=== PATIENT | male | born 1935 | race Caucasian/White ===

== ENCOUNTER 2016-04-10 00:20 | Inpatient (IN) | payer MEDICARE ==
[~2016-04-10] VITALS: Ht 182.9 cm; Wt 101.2 kg
[2016-04-10 00:55] LABS: BASO % 0 % (0-3); EOS % 0 % (0-3); HEMATOCRIT 40.7 % (39.0-53.0); HEMOGLOBIN 13.3 g/dL (13.0-17.5); LYMPH % 18 % (24-48); MEAN CORPUSCULAR HEMOGLOBIN 31 pg (25-35); MEAN CORPUSCULAR HGB CONC 33 g/dL (31-37); MEAN CORPUSCULAR VOLUME 94 fL (79-100); MONO % 10 % (0-9); NEUT % 72 % (31-73); PLATELET COUNT 141 x10^3/uL (140-400); RED BLOOD COUNT 4.33 x10^6/uL (4.30-5.70); RED CELL DISTRIBUTION WIDTH 15.2 % (11.5-14.5); WHITE BLOOD COUNT 5.6 x10^3/uL (4.0-11.0)
[2016-04-10 01:13] LABS: OBC FLU VALID
[2016-04-10] MEDS: IV NORMAL SALINE 1000ML BAG 1,000 ML IV SCH ×5 (01:15→19:00)
[2016-04-10 01:20] LABS: CALCIUM 8.6 mg/dL (8.5-10.1); CREATININE 1.7 mg/dL (0.7-1.3); GFR 39.2; POTASSIUM 4.2 mmol/L (3.5-5.1)
[2016-04-10 01:26] LABS: ALBUMIN 3.2 g/dL (3.4-5.0); TOTAL BILIRUBIN 0.3 mg/dL (0.2-1.0); TOTAL PROTEIN 6.5 g/dL (6.4-8.2)
[2016-04-10] MEDS ORDERED: ACETAMINOPHEN 500 MG TABLET PO ONE (01:30)
[2016-04-10] MEDS ORDERED: OSELTAMIVIR 75 MG CAPSULE PO ONE (01:45)
[2016-04-10] MEDS ORDERED: ONDANSETRON PF 4 MG/2 ML VIAL. IV PRN ×2 (02:45→12:00)
[2016-04-10 03:30] VITALS: BP 117/56
[2016-04-10] MEDS ORDERED: DIVA250T6 PO (03:53)
[2016-04-10] MEDS ORDERED: MELA5CAP PO (03:53)
[2016-04-10] MEDS ORDERED: METF500T4 PO (03:53)
[2016-04-10] MEDS ORDERED: HYDR30CR RC (03:53)
[2016-04-10] MEDS ORDERED: ACET325T9 PO (03:53)
[2016-04-10] MEDS ORDERED: LOSA50TA6 PO (03:53)
[2016-04-10] MEDS ORDERED: BUSP15TA PO (03:53)
[2016-04-10] MEDS ORDERED: FLUT16SP NAS (03:53)
[2016-04-10] MEDS ORDERED: GLIM2TAB2 PO (03:53)
[2016-04-10] MEDS ORDERED: IPRA3AMP NEB (03:53)
[2016-04-10] MEDS ORDERED: ESZO2TAB33 PO (03:53)
[2016-04-10] MEDS ORDERED: DONE10TA7 PO (03:53)
[2016-04-10] MEDS ORDERED: MAGN400O4 PO (03:53)
[2016-04-10] MEDS ORDERED: TRAZ50TA15 PO (03:53)
[2016-04-10] MEDS ORDERED: ALPR0.254 PO (03:53)
[2016-04-10] MEDS ORDERED: ASPI-482 PO (03:53)
[2016-04-10] MEDS ORDERED: CITA40TA5 PO (03:53)
--- NOTE | 2016-04-10 03:55 | PHYS DOC ---
Past Medical History Past Medical History: Anxiety, Dementia, Depression, Diabetes-Type II, Hypertension Additional Past Medical Histor: insomnia, poor historian Past Surgical History: Appendectomy, Knee Replacement Additional Past Surgical Histo: R knee, cardiac stents Alcohol Use: None Drug Use: None Adult General Chief Complaint Chief Complaint: ALTERED MENTAL STATUS HPI HPI Patient is a 80 year old gentleman who has a history significant for coronary artery disease, hypertension, diabetes, status post cholecystectomy, former smoker and alcoholic, currently with a diagnosis of Alzheimer's per his daughter presents to the ER today secondary to hypoxia, fever to 103, and altered mental status at the nursing facility. According the daughter he's been having a dry nonproductive cough. No nausea vomiting or diarrhea. She reports that they did an x-ray on him at the facility and his chest x-ray was normal. They brought him into the ER today secondary to hypoxia at the facility his oxygen level been running between 85-88% on room air which is unusual for him. Patient's physical exam is unremarkable. Patient's lungs were clear with no wheezing rales or rhonchi. On 3 L of O2 and his pulse ox is 98%. Patient appears comfortable. Patient has no rashes. Patient has no signs or symptoms of be consistent with meningitis. Patient's lab workup in the ER was significant for positive influenza. Patient' s chest x-ray was clear with no infiltrates or effusions. The remainder the patient's labs were all within normal limits. Given that the patient is hypoxic in the ER with a pulse ox of 85% on room air every time he take his O2 off he does desaturate and his influenza titer being positive we will go ahead and admit him for supplemental O2 and further evaluation of his pulmonary status. Patient is otherwise clinically and hemodynamically stable to be transferred to the floor. Review of Systems Review of Systems Constitutional: Denies fever or chills [] Eyes: Denies change in visual acuity, redness, or eye pain [] All other review systems are negative except as documented in the history of present illness portion. Current Medications Current Medications Current Medications Medications (Trade) Dose Ordered Sig/Laine Start Time Stop Time Status Last Admin Dose Admin Sodium Chloride (Iv Sodium Chloride 0.9% 1000ml Bag) 1,000 ml @ 750 mls/hr Q1H20M 04/10/16 01:00 04/10/16 04:59 04/10/16 01:15 750 MLS/HR Allergies Allergies Allergies Coded Allergies Type Severity Reaction Last Updated Verified No Known Drug Allergies 04/10/16 No Physical Exam Physical Exam Constitutional: Well developed, well nourished, no acute distress, non-toxic appearance. [] HENT: Normocephalic, atraumatic, bilateral external ears normal, oropharynx moist, no oral exudates, nose normal. [] Eyes: PERRLA, EOMI, conjunctiva normal, no discharge. [] Neck: Normal range of motion, no tenderness, supple, no stridor. [] Cardiovascular:Heart rate regular rhythm, no murmur [] Lungs & Thorax: Bilateral breath sounds clear to auscultation [] Abdomen: Bowel sounds normal, soft, no tenderness, no masses, no pulsatile masses. [] Skin: Warm, dry, no erythema, no rash. [] Back: No tenderness, no CVA tenderness. [] Extremities: No tenderness, no cyanosis, no clubbing, ROM intact, no edema. [] Neurologic: Alert and oriented X Current Patient Data Vital Signs Vital Signs Date Time Temp Pulse Resp B/P Pulse Ox O2 Delivery O2 Flow Rate FiO2 04/10/16 01:05 78 20 103/59 96 Nasal Cannula 3 04/10/16 00:20 101.8 101.8 Lab Values Laboratory Tests Test 04/10/16 00:30 04/10/16 00:33 White Blood Count 5.6x10^3/uL (4.0-11.0) Red Blood Count 4.33x10^6/uL (4.30-5.70) Hemoglobin 13.3g/dL (13.0-17.5) Hematocrit 40.7% (39.0-53.0) Mean Corpuscular Volume 94fL (79-100) Mean Corpuscular Hemoglobin 31pg (25-35) Mean Corpuscular Hemoglobin Concent 33g/dL (31-37) Red Cell Distribution Width 15.2% (11.5-14.5) H Platelet Count 141x10^3/uL (140-400) Neutrophils (%) (Auto) 72% (31-73) Lymphocytes (%) (Auto) 18% (24-48) L Monocytes (%) (Auto) 10% (0-9) H Eosinophils (%) (Auto) 0% (0-3) Basophils (%) (Auto) 0% (0-3) Neutrophils # (Auto) 4.0x10^3uL (1.8-7.7) Lymphocytes # (Auto) 1.0x10^3/uL (1.0-4.8) Monocytes # (Auto) 0.6x10^3/uL (0.0-1.1) Eosinophils # (Auto) 0.0x10^3/uL (0.0-0.7) Basophils # (Auto) 0.0x10^3/uL (0.0-0.2) Sodium Level 142mmol/L (136-145) Potassium Level 4.2mmol/L (3.5-5.1) Chloride Level 104mmol/L (98-107) Carbon Dioxide Level 27mmol/L (21-32) Anion Gap 11 (6-14) Blood Urea Nitrogen 26mg/dL (8-26) Creatinine 1.7mg/dL (0.7-1.3) H Estimated GFR (Cockcroft-Gault) 39.2 BUN/Creatinine Ratio 15 (6-20) Glucose Level 217mg/dL (70-99) H Calcium Level 8.6mg/dL (8.5-10.1) Total Bilirubin 0.3mg/dL (0.2-1.0) Aspartate Amino Transferase (AST) 30U/L (15-37) Alanine Aminotransferase (ALT) 20U/L (16-63) Alkaline Phosphatase 64U/L (46-116) Total Protein 6.5g/dL (6.4-8.2) Albumin 3.2g/dL (3.4-5.0) L Albumin/Globulin Ratio 1.0 (1.0-1.7) Influenza Type A Antigen Negative (NEGATIVE) Influenza Type B Antigen Positive (NEGATIVE) Laboratory Tests 04/10/16 00:30 Laboratory Tests 04/10/16 00:30 EKG EKG [] Radiology/Procedures Radiology/Procedures [] Course & Med Decision Making Course & Med Decision Making Pertinent Labs and Imaging studies reviewed. (See chart for details) [] Dragon Disclaimer Dragon Disclaimer This electronic medical record was generated, in whole or in part, using a voice recognition dictation system. Departure Departure Impression: Primary Impression: Altered mental status Additional Impressions: Febrile illness Influenza Hypoxia Disposition: ADMITTED INPATIENT Admitting Physician: Fernando Goncalves Condition: LEFT WITHOUT BEING SEEN Referrals: FELIX LECHUGA MD (PCP) Problem Qualifiers JARRELL SAMUEL MD Apr 10, 2016 03:55
--- NOTE | 2016-04-10 04:33 | ACF ---
Admit Criteria Forms Admit Criteria Forms Admit Criteria Forms MENTAL STATUS CHANGE Clinical Indications for Inpatient Care (Place 'X' for any and all applicable criteria): Ongoing inpatient care may be needed for ANY ONE of the following(1)(2)(3)(5)(6) : [X]I. Suspected serious etiology (eg, medical disorder, OPTICAL DESIGN ENGINEER event) of mental status change [ ]II. Danger to self or others not manageable at lower level of care [ ]III. Grave disability (eg, inability to perform self care necessary at lower level of care) [ ]IV. Agitation or inappropriate behavior interfering with care for primary condition (eg, attempting to discontinue lines or drains prematurely, unable to cooperate with respiratory care) [ ]V. Delirium [A] [D][E] as described by ANY ONE of the following(26): [ ]a) Delirium due to alcohol or sedative [F] withdrawal [ ]b) Delirium of uncertain etiology that has not responded to appropriate empiric treatment [ ]c) Delirium that prevents performance of a life-sustaining function (eg, feeding or hydrating oneself) [X]. General contraindications and/or Inappropriate clinical situations for Observational Care in patients with Mental Status Change, when ANY ONE of the following is required: [X]a) Prediction of prolongation of LOS based on ANY ONE of the following may be considered as a contraindication for observational care 2, 3, 4, 5, 6, 7, 8, 9, 10, 11 [X]i) Age > 65 yrs. [ ]ii) Patient arriving by ambulance [ ]iii) Patient with high acuity [ ]iv) Patient requiring vital sign monitoring [ ]v) Patient on IV medication [ ]b) Systolic blood pressures 180mmHg 3,12 [ ]c) Patient with altered mental status including delirium and other alteration of consciousness, (3) [ ]d) Patient whose discharge disposition will be to a detention home or rehabilitation home should not be managed in Emergency Department Observation Unit. CMS rule requires 3 days hospital stay before such placement.3,13 [ ]e) Patient with failure to thrive due to broad array of etiologies 3,16,17 [ ]f) Inability to ambulate 3,14 Extended stay beyond goal length of stay for the primary condition may be needed until ALL of the following are present(3)(5): [ ]a) Underlying medical etiology of mental status change is absent, or has been established and adequately treated [ ]b) Danger to self or others is absent or manageable at lower level of care. [ ]c) Behavior crisis management, including physical or chemical restraints, is not required or available at lower level of car [ ]d) Substance or alcohol withdrawal is absent or manageable at lower level of care. [ ]e) Behavioral symptoms (eg, agitation, somnolence, inappropriate behavior) are absent, or are manageable at lower level of care. The original [facility] content created by [employer] has been revised. The portions of the content which have been revised are identified through the use of italic text or in bold, and [facility] [employer] has neither reviewed nor approved the modified material. All other unmodified content is copyright [employer]. Please see references footnoted in the original [facility] edition 2016 MENTAL STATUS CHANGE Clinical Indications for Inpatient Care (Place 'X' for any and all applicable criteria): Ongoing inpatient care may be needed for ANY ONE of the following(1)(2)(3)(5)(6) : [ ]I. Suspected serious etiology (eg, medical disorder, OPTICAL DESIGN ENGINEER event) of mental status change [ ]II. Danger to self or others not manageable at lower level of care [ ]III. Grave disability (eg, inability to perform self care necessary at lower level of care) [ ]IV. Agitation or inappropriate behavior interfering with care for primary condition (eg, attempting to discontinue lines or drains prematurely, unable to cooperate with respiratory care) [ ]V. Delirium [A] [D][E] as described by ANY ONE of the following(26): [ ]a) Delirium due to alcohol or sedative [F] withdrawal [ ]b) Delirium of uncertain etiology that has not responded to appropriate empiric treatment [ ]c) Delirium that prevents performance of a life-sustaining function (eg, feeding or hydrating oneself) [X]. General contraindications and/or Inappropriate clinical situations for Observational Care in patients with Mental Status Change, when ANY ONE of the following is required: [X]a) Prediction of prolongation of LOS based on ANY ONE of the following may be considered as a contraindication for observational care 2, 3, 4, 5, 6, 7, 8, 9, 10, 11 [X]i) Age > 65 yrs. [ ]ii) Patient arriving by ambulance [ ]iii) Patient with high acuity [ ]iv) Patient requiring vital sign monitoring [ ]v) Patient on IV medication [ ]b) Systolic blood pressures 180mmHg 3,12 [ ]c) Patient with altered mental status including delirium and other alteration of consciousness, (3) [ ]d) Patient whose discharge disposition will be to a detention home or rehabilitation home should not be managed in Emergency Department Observation Unit. CMS rule requires 3 days hospital stay before such placement.3,13 [ ]e) Patient with failure to thrive due to broad array of etiologies 3,16,17 [ ]f) Inability to ambulate 3,14 Extended stay beyond goal length of stay for the primary condition may be needed until ALL of the following are present(3)(5): [ ]a) Underlying medical etiology of mental status change is absent, or has been established and adequately treated [ ]b) Danger to self or others is absent or manageable at lower level of care. [ ]c) Behavior crisis management, including physical or chemical restraints, is not required or available at lower level of car [ ]d) Substance or alcohol withdrawal is absent or manageable at lower level of care. [ ]e) Behavioral symptoms (eg, agitation, somnolence, inappropriate behavior) are absent, or are manageable at lower level of care. The original [facility] content created by [facility] [employer] [facility] [employer] has been revised. The portions of the content which have been revised are identified through the use of italic text or in bold, and [facility] has neither reviewed nor approved the modified material. All other unmodified content is copyright [facility] [employer]. Please see references footnoted in the original [facility] [employer] edition 2016 KIARA FELICIANO Apr 10, 2016 04:33
[2016-04-10 07:00] VITALS: BP 144/76
--- NOTE | 2016-04-10 07:28 | RAD ---
EXAM: Chest one view. HISTORY: Fever. COMPARISON: 05/06/2015. FINDINGS: A frontal view of the chest is obtained. There is a mild opacity in the retrocardiac territory. There is no pneumothorax or pleural effusion. The heart is not enlarged. There are atherosclerotic calcifications of the aorta. IMPRESSION: 1. Retrocardiac atelectasis or infiltrate.
[2016-04-10] MEDS: IPRATRPIUM/ALBUTEROL 0.5/2.5MG 3 ML NEBU. NEB SCH ×4 (08:36→20:01)
[2016-04-10] MEDS: ACETAMINOPHEN 325 MG TABLET. PO PRN ×2 (09:36→21:13)
[2016-04-10 11:22] VITALS: BP 111/57
[2016-04-10] MEDS ORDERED: ALPRAZOLAM 0.25 MG TABLET PO PRN (12:00)
[2016-04-10] MEDS ORDERED: IV 1/2 NORMAL SALINE 1,000 ML IV ONE (12:00)
[2016-04-10] MEDS ORDERED: traZODone 50 MG TABLET. PO PRN (12:00)
[2016-04-10] MEDS ORDERED: DIVALPROEX DELAYED RELEASE 250 MG TABLET.DR. PO PRN (12:00)
[2016-04-10] MEDS ORDERED: ALBUTEROL SULFATE 2.5 MG/3 ML NEBU. NEB PRN (12:00)
[2016-04-10] MEDS ORDERED: DEXTROSE 50% 25 GM / 50ML DISP.SYRIN. IV PRN (12:00)
[2016-04-10] MEDS ORDERED: NON FORMULARY ITEM (Melatonin 5 MG) PO PRN (12:00)
[2016-04-10] MEDS ORDERED: busPIRone 5 MG TABLET. PO PRN (12:00)
[2016-04-10] MEDS ORDERED: HYDROCORTISONE 2.5% RECTAL CREAM 30GM TUBE. RC PRN (12:00)
--- NOTE | 2016-04-10 12:29 | PDOC ---
Provider Note Provider Note dictated CHARISSA MCDONNELL MD Apr 10, 2016 12:29
[2016-04-10] MEDS: INSULIN ASPART 300 UNITS/3 ML INSULN.PEN SQ SCH ×3 (12:30→21:00)
--- NOTE | 2016-04-10 12:57 | CONS ---
DATE OF CONSULTATION: ATTENDING PHYSICIAN: Dr. Goncalves. REASON FOR CONSULTATION: Influenza. HISTORY OF PRESENT ILLNESS: The patient is a 80-year-old male with history of coronary artery disease, hypertension and diabetes. He is a former smoker and alcoholic. He was brought into the Emergency Room with fever of 103 and altered mental status at the nursing facility. The patient has been having a dry nonproductive cough. He is not the best historian. I will obtain much of the history from the ER note and also from H and P. He is not in any obvious respiratory distress. He is currently requiring oxygen at 3 liters with a saturation of 91%. His chest x-ray was reviewed by me and it showed questionable atelectasis or infiltrate in the left lower lobe. I also reviewed his CT from 06/08/2015. At that time, there was some few parenchymal abnormalities on the left side, one of them was 0.5 cm nodular density in the left upper lobe and ____ density in the left lower lobe. It has not been followed up. Consultation requested for further evaluation and management. His serology for influenza B is positive. PAST MEDICAL HISTORY: Significant for anxiety, dementia, depression, type 2 diabetes, hypertension, insomnia, poor historian, Alzheimer's disease. PAST SURGICAL HISTORY: Appendectomy and knee replacement and cardiac stents. ALLERGIES: None. CURRENT MEDICATIONS: Currently were reviewed as listed in the MRAD including Tamiflu. REVIEW OF SYSTEMS: Limited, but pertinent positives discussed in history of present illness. SOCIAL HISTORY: Lives in [facility]. The patient denies any significant tobacco history. PHYSICAL EXAMINATION: VITAL SIGNS: Blood pressure is stable, T-max of 101.7, pulse ox 91% on 3 liters. NECK: Supple. LUNGS: Clear. CARDIOVASCULAR: Regular rate. ABDOMEN: Soft, nontender. EXTREMITIES: With bilateral pitting edema. LABORATORY DATA: Reviewed and influenza B is positive. BUN 26, creatinine 1.7. White cell count 5.6, hemoglobin 13.3, platelets of 141. IMPRESSION: 1. Febrile illness secondary to influenza B. 2. Previous abnormal CT chest in 06/2015. Would need a followup CT chest. 3. Encephalopathy secondary to febrile illness, clinically improving. 4. Renal insufficiency. RECOMMENDATIONS: 1. Continue with Tamiflu. 2. Influenza isolation. 3. Continue with oxygen and slowly wean to keep saturation [address] above[address] 4. Noncontrast CT chest. 5. IV hydration and monitor renal function. 6. Discussed with RN. CHARISSA MCDONNELL MD DR: EMANI/yamil JOB#: [id number] / [id number]
[2016-04-10] MEDS: LOSARTAN POTASSIUM 50 MG TABLET. PO SCH (13:46)
[2016-04-10] MEDS: ASPIRIN ENTERIC COATED 81 MG TABLET.DR. PO SCH (13:46)
--- NOTE | 2016-04-10 14:39 | PDOC1 ---
History and Physical Date of Admission Date of Admission 04/10/16 Identification/Chief Complaint Chief Complaint fever Problems: Source Source: Chart review History of Present Illness History of Present Illness 80 yo M , severe dementia, from SNF, for fever 103. Pt was found + flu, on tamiflu now. pt is very demented, only aaox1 to his name, answer questions tho, but only says "NO". he admited has some cough, denies sob. He was found desat in ER. Past Medical History Past Medical History ry: Anxiety, Dementia, Depression, Diabetes-Type II, Hypertension Additional Past Medical Histor: insomnia, poor historian Cardiovascular: HTN Past Surgical History Past Surgical History : Appendectomy, Knee Replacement Additional Past Surgical Histo: R knee, cardiac stents Family History Family History: No Significant Social History Smoke: No ALCOHOL: none Drugs: None Current Problem List Problem List Problems Medical Problems: (1) Altered mental status Status: Acute (2) Febrile illness Status: Acute (3) Hypoxia Status: Acute (4) Influenza Status: Acute Current Medications Current Medications Current Medications Medications (Trade) Dose Ordered Sig/Laine Start Time Stop Time Status Last Admin Dose Admin Acetaminophen (Tylenol) 650 mg PRN Q6HRS PRN 04/10/16 12:00 Albuterol Sulfate (Ventolin Neb Soln) 2.5 mg PRN QID PRN 04/10/16 12:00 Albuterol/ Ipratropium (Duoneb) 3 ml RTQID 04/10/16 08:00 04/11/16 07:59 04/10/16 11:24 3 ML Alprazolam (Xanax) 0.25 mg PRN BID PRN 04/10/16 12:00 Aspirin (Ecotrin) 81 mg DAILY 04/10/16 12:15 04/10/16 13:46 81 MG Buspirone HCl (Buspar) 15 mg PRN BID PRN 04/10/16 12:00 Citalopram Hydrobromide (Celexa) 40 mg DAILY 04/11/16 09:00 Dextrose 12.5 gm PRN Q15MIN PRN 04/10/16 12:00 Divalproex Sodium (Depakote) 250 mg PRN DAILY PRN 04/10/16 12:00 Donepezil HCl (Aricept) 10 mg HS 04/10/16 21:00 Fluticasone Propionate (Flonase) 1 spray BID 04/10/16 12:30 Glimepiride (Amaryl) 2 mg BIDAC 04/10/16 16:30 Hydrocortisone (Proctosol-Hc) 1 chase PRN TID PRN 04/10/16 12:00 Insulin Aspart (Novolog) 0-9 UNITS QIDACHS 04/10/16 12:30 Losartan Potassium (Cozaar) 50 mg DAILY 04/10/16 12:30 04/10/16 13:46 50 MG Magnesium Hydroxide (Milk Of Magnesia) 400 mg BIDAC 04/10/16 16:30 Non-Formulary Medication 5 mg HS PRN 04/10/16 12:00 04/10/16 12:00 DC Ondansetron HCl 4 mg 4 mg PRN Q6HRS PRN 04/10/16 12:00 Oseltamivir Phosphate (Tamiflu) 30 mg BID 04/10/16 21:00 04/15/16 20:59 Oseltamivir Phosphate 75 mg 75 mg 1X ONCE 04/10/16 01:45 04/10/16 01:46 DC 04/10/16 01:49 75 MG Sodium Chloride (Iv Sodium Chloride 0.45%) 1,000 ml @ 75 mls/hr 1X ONCE 04/10/16 12:00 04/11/16 01:19 Sodium Chloride (Iv Sodium Chloride 0.9% 1000ml Bag) 1,000 ml @ 125 mls/hr Q8H 04/10/16 03:00 04/11/16 02:59 04/10/16 05:27 125 MLS/HR Trazodone HCl (Desyrel) 25 mg PRN QHS PRN 04/10/16 12:00 Zolpidem Tartrate (Ambien) 5 mg PRN QHS PRN 04/10/16 12:00 Allergies Allergies Allergies Coded Allergies Type Severity Reaction Last Updated Verified No Known Drug Allergies 04/10/16 No ROS Review of System CONSTITUTIONAL: No fever or chills EYES: No recent changes SKIN: No rash or itching CARDIOVASCULAR: No chest pain, syncope, palpitations, or edema RESPIRATORY: No SOB or cough GASTROINTESTINAL: No nausea, vomiting or abdominal pain NEUROLOGICAL: No headaches or weakness ENDOCRINE: No cold or heat intolerance GENITOURINARY: No urgency or frequency of urination MUSCULOSKELETAL: No back pain or joint pain LYMPHATICS: No enlarged lymph nodes PSYCHIATRIC: No anxiety or depression Physical Exam Physical Exam GEN.: No apparent distress. Alert and orientedx1 , to person only, pleasant. follow commands. HEENT: Head is normocephalic, atraumatic NECK: Supple. LUNGS: bl coarse BS HEART: RRR, S1, S2 present. Peripheral pulses intact ABDOMEN: Soft, nontender. Positive bowel sounds. EXTREMITIES: Without any cyanosis. NEUROLOGIC: Normal speech, normal tone PSYCHIATRIC: Normal affect, normal mood. SKIN: No ulcerations Vitals Vitals Vital Signs Date Time Temp Pulse Resp B/P Pulse Ox O2 Delivery O2 Flow Rate FiO2 04/10/16 13:46 65 111/57 04/10/16 11:27 91 Nasal Cannula 3.0 04/10/16 11:22 98.4 22 98.4 Labs Labs Laboratory Tests Test 04/10/16 00:30 04/10/16 00:33 04/10/16 07:42 White Blood Count 5.6x10^3/uL (4.0-11.0) Red Blood Count 4.33x10^6/uL (4.30-5.70) Hemoglobin 13.3g/dL (13.0-17.5) Hematocrit 40.7% (39.0-53.0) Mean Corpuscular Volume 94fL (79-100) Mean Corpuscular Hemoglobin 31pg (25-35) Mean Corpuscular Hemoglobin Concent 33g/dL (31-37) Red Cell Distribution Width 15.2% (11.5-14.5) Platelet Count 141x10^3/uL (140-400) Neutrophils (%) (Auto) 72% (31-73) Lymphocytes (%) (Auto) 18% (24-48) Monocytes (%) (Auto) 10% (0-9) Eosinophils (%) (Auto) 0% (0-3) Basophils (%) (Auto) 0% (0-3) Neutrophils # (Auto) 4.0x10^3uL (1.8-7.7) Lymphocytes # (Auto) 1.0x10^3/uL (1.0-4.8) Monocytes # (Auto) 0.6x10^3/uL (0.0-1.1) Eosinophils # (Auto) 0.0x10^3/uL (0.0-0.7) Basophils # (Auto) 0.0x10^3/uL (0.0-0.2) Sodium Level 142mmol/L (136-145) Potassium Level 4.2mmol/L (3.5-5.1) Chloride Level 104mmol/L (98-107) Carbon Dioxide Level 27mmol/L (21-32) Anion Gap 11 (6-14) Blood Urea Nitrogen 26mg/dL (8-26) Creatinine 1.7mg/dL (0.7-1.3) Estimated GFR (Cockcroft-Gault) 39.2 BUN/Creatinine Ratio 15 (6-20) Glucose Level 217mg/dL (70-99) Calcium Level 8.6mg/dL (8.5-10.1) Total Bilirubin 0.3mg/dL (0.2-1.0) Aspartate Amino Transf (AST/SGOT) 30U/L (15-37) Alanine Aminotransferase (ALT/SGPT) 20U/L (16-63) Alkaline Phosphatase 64U/L (46-116) Total Protein 6.5g/dL (6.4-8.2) Albumin 3.2g/dL (3.4-5.0) Albumin/Globulin Ratio 1.0 (1.0-1.7) Influenza Type A Antigen Negative (NEGATIVE) Influenza Type B Antigen Positive (NEGATIVE) Glucose (Fingerstick) 77mg/dL (70-99) Laboratory Tests Test 04/10/16 00:30 04/10/16 00:33 04/10/16 07:42 White Blood Count 5.6x10^3/uL (4.0-11.0) Red Blood Count 4.33x10^6/uL (4.30-5.70) Hemoglobin 13.3g/dL (13.0-17.5) Hematocrit 40.7% (39.0-53.0) Mean Corpuscular Volume 94fL (79-100) Mean Corpuscular Hemoglobin 31pg (25-35) Mean Corpuscular Hemoglobin Concent 33g/dL (31-37) Red Cell Distribution Width 15.2% (11.5-14.5) Platelet Count 141x10^3/uL (140-400) Neutrophils (%) (Auto) 72% (31-73) Lymphocytes (%) (Auto) 18% (24-48) Monocytes (%) (Auto) 10% (0-9) Eosinophils (%) (Auto) 0% (0-3) Basophils (%) (Auto) 0% (0-3) Neutrophils # (Auto) 4.0x10^3uL (1.8-7.7) Lymphocytes # (Auto) 1.0x10^3/uL (1.0-4.8) Monocytes # (Auto) 0.6x10^3/uL (0.0-1.1) Eosinophils # (Auto) 0.0x10^3/uL (0.0-0.7) Basophils # (Auto) 0.0x10^3/uL (0.0-0.2) Sodium Level 142mmol/L (136-145) Potassium Level 4.2mmol/L (3.5-5.1) Chloride Level 104mmol/L (98-107) Carbon Dioxide Level 27mmol/L (21-32) Anion Gap 11 (6-14) Blood Urea Nitrogen 26mg/dL (8-26) Creatinine 1.7mg/dL (0.7-1.3) Estimated GFR (Cockcroft-Gault) 39.2 BUN/Creatinine Ratio 15 (6-20) Glucose Level 217mg/dL (70-99) Calcium Level 8.6mg/dL (8.5-10.1) Total Bilirubin 0.3mg/dL (0.2-1.0) Aspartate Amino Transf (AST/SGOT) 30U/L (15-37) Alanine Aminotransferase (ALT/SGPT) 20U/L (16-63) Alkaline Phosphatase 64U/L (46-116) Total Protein 6.5g/dL (6.4-8.2) Albumin 3.2g/dL (3.4-5.0) Albumin/Globulin Ratio 1.0 (1.0-1.7) Influenza Type A Antigen Negative (NEGATIVE) Influenza Type B Antigen Positive (NEGATIVE) Glucose (Fingerstick) 77mg/dL (70-99) VTE Prophylaxis Ordered VTE Prophylaxis Devices: Yes VTE Pharmacological Prophylaxi: Yes Assessment/Plan Assessment/Plan 1. acute resp failure with hypoxia 2 flu b 3. severe dementia 4. dm2 5. htn 6. insomnia 7. anxiety, depression 8. ckd3 9. SIRS with flu plan: 1. fu with pulm 2. adjusted dose of tamiflu, 5ds 3. cont home meds ssi ivf for 1 L labs tmr dvt ppx PTOT PAMELA HADDAD MD Apr 10, 2016 14:39
[2016-04-10] MEDS: HEPARIN PF for SUB-Q USE 5,000 UNIT/0.5 ML VIAL. SQ SCH ×2 (15:00→21:23)
[2016-04-10 15:21] VITALS: BP 108/65
--- NOTE | 2016-04-10 16:27 | RAD ---
EXAM: CT of the chest without intravenous contrast. HISTORY: Lung nodule follow-up. TECHNIQUE: Computed tomography of the chest was performed without intravenous contrast. COMPARISON: 06/08/2015. FINDINGS: Images of the upper abdomen reveal calcified granulomas in the liver and spleen. A gallstone is noted. Bone windows reveal no suspicious lesions. There are no pathologically enlarged mediastinal or axillary lymph nodes. Calcified mediastinal lymph nodes are likely secondary to old granulomatous disease. There is no pleural or pericardial effusion. Calcifications in the right greater than left costophrenic angles may be pleural or small calcified granulomas. The heart is not enlarged. There are atherosclerotic calcifications of the coronary arteries. There are also calcifications of the aortic valve. There are limitations from respiratory motion artifact. Bronchial wall thickening is most notable in the lower lobes. There appears to be mild centrilobular emphysema in the apices. The site of prior concern medially and anteriorly in the left upper lobe measures 6 mm and appears scarlike. There is no clear interval change. IMPRESSION: 1. No interval change in a 5-6 mm scarlike focus anteromedially in the left upper lobe. Another follow-up can be performed in 6-12 months. 2. Scattered calcifications in the costophrenic angles may be pleural. Correlate for prior asbestos exposure. 3. Bronchial wall thickening. Correlate for acute or chronic bronchitis. 4. Aortic valve calcifications. Correlate for aortic stenosis. 5. Cholelithiasis. *One or more of the following individualized dose reduction techniques were utilized for this examination: 1. Automated exposure control. 2. Adjustment of the mA and/or kV according to patient size. 3. Use of iterative reconstruction technique.
[2016-04-10] MEDS: GLIMEPIRIDE 2 MG TABLET PO SCH (16:51)
[2016-04-10] MEDS: MAGNESIUM HYDROXIDE 2,400 MG/30 ML ORAL.SUSP. PO SCH (16:51)
[2016-04-10] MEDS: FLUTICASONE 50MCG/NASAL SPRAY 16GM BOTTLE. NS SCH ×2 (16:52→21:12)
[2016-04-10 19:00] VITALS: BP 113/66
[2016-04-10] MEDS: OSELTAMIVIR 30 MG CAPSULE PO SCH (21:13)
[2016-04-10] MEDS: DONEPEZIL HCL 10 MG TABLET. PO SCH (21:13)
[2016-04-10] MEDS: PANTOPRAZOLE 40 MG TABLET. PO SCH (21:13)
[2016-04-10 23:00] VITALS: BP 133/67
[2016-04-11] VITALS (7 sets, daily range): BP systolic 127–156; BP diastolic 68–85
[2016-04-11] MEDS: HEPARIN PF for SUB-Q USE 5,000 UNIT/0.5 ML VIAL. SQ SCH ×3 (05:59→21:12)
[2016-04-11 06:30] LABS: BASO % 0 % (0-3); EOS % 1 % (0-3); HEMATOCRIT 39.7 % (39.0-53.0); HEMOGLOBIN 12.9 g/dL (13.0-17.5); LYMPH % 25 % (24-48); MEAN CORPUSCULAR HEMOGLOBIN 31 pg (25-35); MEAN CORPUSCULAR HGB CONC 33 g/dL (31-37); MEAN CORPUSCULAR VOLUME 94 fL (79-100); MONO % 12 % (0-9); NEUT % 62 % (31-73); PLATELET COUNT 116 x10^3/uL (140-400); RED BLOOD COUNT 4.22 x10^6/uL (4.30-5.70); RED CELL DISTRIBUTION WIDTH 14.7 % (11.5-14.5)
[2016-04-11 06:48] LABS: CALCIUM 8.1 mg/dL (8.5-10.1); CREATININE 1.1 mg/dL (0.7-1.3); GFR 64.7; POTASSIUM 4.3 mmol/L (3.5-5.1)
[2016-04-11] MEDS: MAGNESIUM HYDROXIDE 2,400 MG/30 ML ORAL.SUSP. PO SCH ×2 (07:30→16:55)
[2016-04-11] MEDS: INSULIN ASPART 300 UNITS/3 ML INSULN.PEN SQ SCH ×3 (07:30→16:30)
[2016-04-11] MEDS: LOSARTAN POTASSIUM 50 MG TABLET. PO SCH (08:17)
[2016-04-11] MEDS: PANTOPRAZOLE 40 MG TABLET. PO SCH (08:17)
[2016-04-11] MEDS: OSELTAMIVIR 30 MG CAPSULE PO SCH ×2 (08:17→21:04)
[2016-04-11] MEDS: ASPIRIN ENTERIC COATED 81 MG TABLET.DR. PO SCH (08:17)
[2016-04-11] MEDS: GLIMEPIRIDE 2 MG TABLET PO SCH ×2 (08:17→16:30)
[2016-04-11] MEDS: FLUTICASONE 50MCG/NASAL SPRAY 16GM BOTTLE. NS SCH ×2 (08:18→21:04)
[2016-04-11] MEDS: CITALOPRAM 20 MG TABLET. PO SCH (08:24)
--- NOTE | 2016-04-11 09:27 | PDOC ---
PULMONARY PROGRESS NOTES Subjective much better Vitals Vital Signs Date Time Temp Pulse Resp B/P Pulse Ox O2 Delivery O2 Flow Rate FiO2 04/11/16 08:17 69 130/71 04/11/16 07:02 98.4 20 96 Nasal Cannula 2.0 98.4 General: Alert, No acute distress Lungs: Clear Cardiovascular: S1 Abdomen: Soft Neuro Exam: Alert Extremities: No Edema Skin: Warm Labs Laboratory Tests Test 04/10/16 00:30 04/10/16 00:33 04/10/16 07:42 04/10/16 10:58 White Blood Count 5.6x10^3/uL (4.0-11.0) Red Blood Count 4.33x10^6/uL (4.30-5.70) Hemoglobin 13.3g/dL (13.0-17.5) Hematocrit 40.7% (39.0-53.0) Mean Corpuscular Volume 94fL (79-100) Mean Corpuscular Hemoglobin 31pg (25-35) Mean Corpuscular Hemoglobin Concent 33g/dL (31-37) Red Cell Distribution Width 15.2% (11.5-14.5) Platelet Count 141x10^3/uL (140-400) Neutrophils (%) (Auto) 72% (31-73) Lymphocytes (%) (Auto) 18% (24-48) Monocytes (%) (Auto) 10% (0-9) Eosinophils (%) (Auto) 0% (0-3) Basophils (%) (Auto) 0% (0-3) Neutrophils # (Auto) 4.0x10^3uL (1.8-7.7) Lymphocytes # (Auto) 1.0x10^3/uL (1.0-4.8) Monocytes # (Auto) 0.6x10^3/uL (0.0-1.1) Eosinophils # (Auto) 0.0x10^3/uL (0.0-0.7) Basophils # (Auto) 0.0x10^3/uL (0.0-0.2) Sodium Level 142mmol/L (136-145) Potassium Level 4.2mmol/L (3.5-5.1) Chloride Level 104mmol/L (98-107) Carbon Dioxide Level 27mmol/L (21-32) Anion Gap 11 (6-14) Blood Urea Nitrogen 26mg/dL (8-26) Creatinine 1.7mg/dL (0.7-1.3) Estimated GFR (Cockcroft-Gault) 39.2 BUN/Creatinine Ratio 15 (6-20) Glucose Level 217mg/dL (70-99) Calcium Level 8.6mg/dL (8.5-10.1) Total Bilirubin 0.3mg/dL (0.2-1.0) Aspartate Amino Transf (AST/SGOT) 30U/L (15-37) Alanine Aminotransferase (ALT/SGPT) 20U/L (16-63) Alkaline Phosphatase 64U/L (46-116) Total Protein 6.5g/dL (6.4-8.2) Albumin 3.2g/dL (3.4-5.0) Albumin/Globulin Ratio 1.0 (1.0-1.7) Influenza Type A Antigen Negative (NEGATIVE) Influenza Type B Antigen Positive (NEGATIVE) Glucose (Fingerstick) 77mg/dL (70-99) 125mg/dL (70-99) Test 04/10/16 16:07 04/10/16 21:16 04/11/16 06:20 Glucose (Fingerstick) 148mg/dL (70-99) 129mg/dL (70-99) White Blood Count 4.0x10^3/uL (4.0-11.0) Red Blood Count 4.22x10^6/uL (4.30-5.70) Hemoglobin 12.9g/dL (13.0-17.5) Hematocrit 39.7% (39.0-53.0) Mean Corpuscular Volume 94fL (79-100) Mean Corpuscular Hemoglobin 31pg (25-35) Mean Corpuscular Hemoglobin Concent 33g/dL (31-37) Red Cell Distribution Width 14.7% (11.5-14.5) Platelet Count 116x10^3/uL (140-400) Neutrophils (%) (Auto) 62% (31-73) Lymphocytes (%) (Auto) 25% (24-48) Monocytes (%) (Auto) 12% (0-9) Eosinophils (%) (Auto) 1% (0-3) Basophils (%) (Auto) 0% (0-3) Neutrophils # (Auto) 2.5x10^3uL (1.8-7.7) Lymphocytes # (Auto) 1.0x10^3/uL (1.0-4.8) Monocytes # (Auto) 0.5x10^3/uL (0.0-1.1) Eosinophils # (Auto) 0.0x10^3/uL (0.0-0.7) Basophils # (Auto) 0.0x10^3/uL (0.0-0.2) Sodium Level 142mmol/L (136-145) Potassium Level 4.3mmol/L (3.5-5.1) Chloride Level 106mmol/L (98-107) Carbon Dioxide Level 30mmol/L (21-32) Anion Gap 6 (6-14) Blood Urea Nitrogen 13mg/dL (8-26) Creatinine 1.1mg/dL (0.7-1.3) Estimated GFR (Cockcroft-Gault) 64.7 Glucose Level 73mg/dL (70-99) Calcium Level 8.1mg/dL (8.5-10.1) Laboratory Tests Test 04/10/16 10:58 04/10/16 16:07 04/10/16 21:16 04/11/16 06:20 Glucose (Fingerstick) 125mg/dL (70-99) 148mg/dL (70-99) 129mg/dL (70-99) White Blood Count 4.0x10^3/uL (4.0-11.0) Red Blood Count 4.22x10^6/uL (4.30-5.70) Hemoglobin 12.9g/dL (13.0-17.5) Hematocrit 39.7% (39.0-53.0) Mean Corpuscular Volume 94fL (79-100) Mean Corpuscular Hemoglobin 31pg (25-35) Mean Corpuscular Hemoglobin Concent 33g/dL (31-37) Red Cell Distribution Width 14.7% (11.5-14.5) Platelet Count 116x10^3/uL (140-400) Neutrophils (%) (Auto) 62% (31-73) Lymphocytes (%) (Auto) 25% (24-48) Monocytes (%) (Auto) 12% (0-9) Eosinophils (%) (Auto) 1% (0-3) Basophils (%) (Auto) 0% (0-3) Neutrophils # (Auto) 2.5x10^3uL (1.8-7.7) Lymphocytes # (Auto) 1.0x10^3/uL (1.0-4.8) Monocytes # (Auto) 0.5x10^3/uL (0.0-1.1) Eosinophils # (Auto) 0.0x10^3/uL (0.0-0.7) Basophils # (Auto) 0.0x10^3/uL (0.0-0.2) Sodium Level 142mmol/L (136-145) Potassium Level 4.3mmol/L (3.5-5.1) Chloride Level 106mmol/L (98-107) Carbon Dioxide Level 30mmol/L (21-32) Anion Gap 6 (6-14) Blood Urea Nitrogen 13mg/dL (8-26) Creatinine 1.1mg/dL (0.7-1.3) Estimated GFR (Cockcroft-Gault) 64.7 Glucose Level 73mg/dL (70-99) Calcium Level 8.1mg/dL (8.5-10.1) Medications Active Scripts Medications Dose Route/Sig Days Date Category Dose Instructions Milk Of Magnesia (Magnesium Hydroxide) 400 Mg/5 Ml Oral.susp 500 Mg PO BIDAC 04/10/16 Reported Metformin Hcl 500 Mg Tablet 1 Tab PO BID 04/10/16 Reported Melatonin 5 Mg Capsule 5 Mg PO HS PRN 04/10/16 Reported Lunesta (Eszopiclone) 2 Mg Tablet 2 Mg PO HS PRN 04/10/16 Reported Lunesta (Eszopiclone) 2 Mg Tablet 2 Mg PO HS PRN 04/10/16 Reported Duoneb 0.5-3(2.5) Mg/3 Ml (Albuterol/Ipratropium) 3 Ml Ampul.neb 3 Ml NEB QID PRN 04/10/16 Reported Aspir 81 (Aspirin) 81 Mg Tablet.dr 1 Tab PO DAILY 04/10/16 Reported Tylenol (Acetaminophen) 325 Mg Tablet 1-2 Tab PO Q4HRS PRN 04/10/16 Reported Buspirone Hcl 15 Mg Tablet 15-30 Mg PO BID PRN 04/10/16 Reported Citalopram Hbr (Citalopram Hydrobromide) 40 Mg Tablet 40 Mg PO DAILY 04/10/16 Reported Glimepiride 2 Mg Tablet 2 Mg PO BIDAC 04/10/16 Reported Losartan Potassium 50 Mg Tablet 50 Mg PO DAILY 04/10/16 Reported Trazodone Hcl 50 Mg Tablet 25 Mg PO HS PRN 04/10/16 Reported Donepezil Hcl 10 Mg Tablet 10 Mg PO HS 04/10/16 Reported Divalproex Sodium 250 Mg Tablet.dr 250 Mg PO DAILY PRN 04/10/16 Reported Proctocream-Hc (Hydrocortisone) 30 Gm Cream..g. 1 Willie RC TID PRN 04/10/16 Reported for hemorroids Fluticasone Propionate Nasal [place] (Fluticasone Propionate) 16 Gm [place].susp 50 Mcg ROXY BID 04/10/16 Reported 2 sprays each nostril Alprazolam 0.25 Mg Tablet 0.25 Mg PO BID PRN 04/10/16 Reported Impression . 1. Febrile illness secondary to influenza B. 2. Previous abnormal CT chest in 06/2015. followup CT chest with unchanged nodular scar ODALYS 3. Encephalopathy secondary to febrile illness, clinically improving. 4. Renal insufficiency. Plan . 1. Continue with Tamiflu. 2. Influenza isolation. 3. Continue with oxygen and slowly wean to keep saturation 92 and above. 4. f/u CT chest in 8 months 5. IV hydration and monitor renal function. 6. Discussed with LANCE. CHARISSA MCDONNELL MD Apr 11, 2016 09:27
--- NOTE | 2016-04-11 12:52 | PDOC ---
PROGRESS NOTES Chief Complaint Chief Complaint 1. acute resp failure with hypoxia 2 flu b 3. severe dementia 4. dm2 5. htn 6. insomnia 7. anxiety, depression 8. ckd3 9. SIRS with flu plan: 1. fu with pulm 2. adjusted dose of tamiflu, 5ds 3. cont home meds ssi labs tmr dvt ppx PTOT History of Present Illness History of Present Illness very confused, mild cough on nc 2L Vitals Vitals Vital Signs Date Time Temp Pulse Resp B/P Pulse Ox O2 Delivery O2 Flow Rate FiO2 04/11/16 11:00 99.9 73 16 135/72 Nasal Cannula 2.0 99.9 04/11/16 10:41 96 Physical Exam General: Alert, Oriented X3, Cooperative Heart: Regular rate, Normal S1 Lungs: Other (bl coarse bs) Abdomen: Normal bowel sounds, Soft Extremities: No clubbing Labs LABS Laboratory Tests Test 04/10/16 16:07 04/10/16 21:16 04/11/16 06:20 04/11/16 06:54 Glucose (Fingerstick) 148mg/dL (70-99) 129mg/dL (70-99) 80mg/dL (70-99) White Blood Count 4.0x10^3/uL (4.0-11.0) Red Blood Count 4.22x10^6/uL (4.30-5.70) Hemoglobin 12.9g/dL (13.0-17.5) Hematocrit 39.7% (39.0-53.0) Mean Corpuscular Volume 94fL (79-100) Mean Corpuscular Hemoglobin 31pg (25-35) Mean Corpuscular Hemoglobin Concent 33g/dL (31-37) Red Cell Distribution Width 14.7% (11.5-14.5) Platelet Count 116x10^3/uL (140-400) Neutrophils (%) (Auto) 62% (31-73) Lymphocytes (%) (Auto) 25% (24-48) Monocytes (%) (Auto) 12% (0-9) Eosinophils (%) (Auto) 1% (0-3) Basophils (%) (Auto) 0% (0-3) Neutrophils # (Auto) 2.5x10^3uL (1.8-7.7) Lymphocytes # (Auto) 1.0x10^3/uL (1.0-4.8) Monocytes # (Auto) 0.5x10^3/uL (0.0-1.1) Eosinophils # (Auto) 0.0x10^3/uL (0.0-0.7) Basophils # (Auto) 0.0x10^3/uL (0.0-0.2) Sodium Level 142mmol/L (136-145) Potassium Level 4.3mmol/L (3.5-5.1) Chloride Level 106mmol/L (98-107) Carbon Dioxide Level 30mmol/L (21-32) Anion Gap 6 (6-14) Blood Urea Nitrogen 13mg/dL (8-26) Creatinine 1.1mg/dL (0.7-1.3) Estimated GFR (Cockcroft-Gault) 64.7 Glucose Level 73mg/dL (70-99) Calcium Level 8.1mg/dL (8.5-10.1) Review of Systems Review of Systems no fever, chills, sob or chest pain Assessment and Plan Assessmemt and Plan Problems Medical Problems: (1) Altered mental status Status: Acute (2) Febrile illness Status: Acute (3) Hypoxia Status: Acute (4) Influenza Status: Acute Problems: Comment Review of Relevant I have reviewed the following items zoraida (where applicable) has been applied. Labs Laboratory Tests Test 04/10/16 00:30 04/10/16 00:33 04/10/16 07:42 04/10/16 10:58 White Blood Count 5.6x10^3/uL (4.0-11.0) Red Blood Count 4.33x10^6/uL (4.30-5.70) Hemoglobin 13.3g/dL (13.0-17.5) Hematocrit 40.7% (39.0-53.0) Mean Corpuscular Volume 94fL (79-100) Mean Corpuscular Hemoglobin 31pg (25-35) Mean Corpuscular Hemoglobin Concent 33g/dL (31-37) Red Cell Distribution Width 15.2% (11.5-14.5) Platelet Count 141x10^3/uL (140-400) Neutrophils (%) (Auto) 72% (31-73) Lymphocytes (%) (Auto) 18% (24-48) Monocytes (%) (Auto) 10% (0-9) Eosinophils (%) (Auto) 0% (0-3) Basophils (%) (Auto) 0% (0-3) Neutrophils # (Auto) 4.0x10^3uL (1.8-7.7) Lymphocytes # (Auto) 1.0x10^3/uL (1.0-4.8) Monocytes # (Auto) 0.6x10^3/uL (0.0-1.1) Eosinophils # (Auto) 0.0x10^3/uL (0.0-0.7) Basophils # (Auto) 0.0x10^3/uL (0.0-0.2) Sodium Level 142mmol/L (136-145) Potassium Level 4.2mmol/L (3.5-5.1) Chloride Level 104mmol/L (98-107) Carbon Dioxide Level 27mmol/L (21-32) Anion Gap 11 (6-14) Blood Urea Nitrogen 26mg/dL (8-26) Creatinine 1.7mg/dL (0.7-1.3) Estimated GFR (Cockcroft-Gault) 39.2 BUN/Creatinine Ratio 15 (6-20) Glucose Level 217mg/dL (70-99) Calcium Level 8.6mg/dL (8.5-10.1) Total Bilirubin 0.3mg/dL (0.2-1.0) Aspartate Amino Transf (AST/SGOT) 30U/L (15-37) Alanine Aminotransferase (ALT/SGPT) 20U/L (16-63) Alkaline Phosphatase 64U/L (46-116) Total Protein 6.5g/dL (6.4-8.2) Albumin 3.2g/dL (3.4-5.0) Albumin/Globulin Ratio 1.0 (1.0-1.7) Influenza Type A Antigen Negative (NEGATIVE) Influenza Type B Antigen Positive (NEGATIVE) Glucose (Fingerstick) 77mg/dL (70-99) 125mg/dL (70-99) Test 04/10/16 16:07 04/10/16 21:16 04/11/16 06:20 04/11/16 06:54 Glucose (Fingerstick) 148mg/dL (70-99) 129mg/dL (70-99) 80mg/dL (70-99) White Blood Count 4.0x10^3/uL (4.0-11.0) Red Blood Count 4.22x10^6/uL (4.30-5.70) Hemoglobin 12.9g/dL (13.0-17.5) Hematocrit 39.7% (39.0-53.0) Mean Corpuscular Volume 94fL (79-100) Mean Corpuscular Hemoglobin 31pg (25-35) Mean Corpuscular Hemoglobin Concent 33g/dL (31-37) Red Cell Distribution Width 14.7% (11.5-14.5) Platelet Count 116x10^3/uL (140-400) Neutrophils (%) (Auto) 62% (31-73) Lymphocytes (%) (Auto) 25% (24-48) Monocytes (%) (Auto) 12% (0-9) Eosinophils (%) (Auto) 1% (0-3) Basophils (%) (Auto) 0% (0-3) Neutrophils # (Auto) 2.5x10^3uL (1.8-7.7) Lymphocytes # (Auto) 1.0x10^3/uL (1.0-4.8) Monocytes # (Auto) 0.5x10^3/uL (0.0-1.1) Eosinophils # (Auto) 0.0x10^3/uL (0.0-0.7) Basophils # (Auto) 0.0x10^3/uL (0.0-0.2) Sodium Level 142mmol/L (136-145) Potassium Level 4.3mmol/L (3.5-5.1) Chloride Level 106mmol/L (98-107) Carbon Dioxide Level 30mmol/L (21-32) Anion Gap 6 (6-14) Blood Urea Nitrogen 13mg/dL (8-26) Creatinine 1.1mg/dL (0.7-1.3) Estimated GFR (Cockcroft-Gault) 64.7 Glucose Level 73mg/dL (70-99) Calcium Level 8.1mg/dL (8.5-10.1) Laboratory Tests Test 04/10/16 16:07 04/10/16 21:16 04/11/16 06:20 04/11/16 06:54 Glucose (Fingerstick) 148mg/dL (70-99) 129mg/dL (70-99) 80mg/dL (70-99) White Blood Count 4.0x10^3/uL (4.0-11.0) Red Blood Count 4.22x10^6/uL (4.30-5.70) Hemoglobin 12.9g/dL (13.0-17.5) Hematocrit 39.7% (39.0-53.0) Mean Corpuscular Volume 94fL (79-100) Mean Corpuscular Hemoglobin 31pg (25-35) Mean Corpuscular Hemoglobin Concent 33g/dL (31-37) Red Cell Distribution Width 14.7% (11.5-14.5) Platelet Count 116x10^3/uL (140-400) Neutrophils (%) (Auto) 62% (31-73) Lymphocytes (%) (Auto) 25% (24-48) Monocytes (%) (Auto) 12% (0-9) Eosinophils (%) (Auto) 1% (0-3) Basophils (%) (Auto) 0% (0-3) Neutrophils # (Auto) 2.5x10^3uL (1.8-7.7) Lymphocytes # (Auto) 1.0x10^3/uL (1.0-4.8) Monocytes # (Auto) 0.5x10^3/uL (0.0-1.1) Eosinophils # (Auto) 0.0x10^3/uL (0.0-0.7) Basophils # (Auto) 0.0x10^3/uL (0.0-0.2) Sodium Level 142mmol/L (136-145) Potassium Level 4.3mmol/L (3.5-5.1) Chloride Level 106mmol/L (98-107) Carbon Dioxide Level 30mmol/L (21-32) Anion Gap 6 (6-14) Blood Urea Nitrogen 13mg/dL (8-26) Creatinine 1.1mg/dL (0.7-1.3) Estimated GFR (Cockcroft-Gault) 64.7 Glucose Level 73mg/dL (70-99) Calcium Level 8.1mg/dL (8.5-10.1) Medications Current Medications Acetaminophen 1000 mg 1,000 mg 1X ONCE PO Last administered on 04/10/16 01:15 ; Start 04/10/16 at 01:30; Stop 04/10/16 at 01:31; Status DC Sodium Chloride (Iv Sodium Chloride 0.9% 1000ml Bag) 1,000 ml @ 750 mls/hr Q1H20M IV Last administered on 04/10/16 01:15; Start 04/10/16 at 01:00; Stop 04/10/16 at 04:59; Status DC Oseltamivir Phosphate (Tamiflu) 75 mg 1X ONCE PO Last administered on 01:49; Start 04/10/16 at 01:45; Stop 04/10/16 at 01:46; Status DC Ondansetron HCl 4 mg 4 mg PRN Q8HRS PRN IV NAUSEA/VOMITING; Start 04/10/16 at 02 :45; Stop 04/11/16 at 02:44; Status DC Sodium Chloride (Iv Sodium Chloride 0.9% 1000ml Bag) 1,000 ml @ 125 mls/hr Q8H IV Last administered on 04/10/16 05:27; Start 04/10/16 at 03:00; Stop 04/11/16 at 02:59; Status DC Acetaminophen (Tylenol) 650 mg PRN Q4HRS PRN PO FEVER Last administered on 21:13; Start 04/10/16 at 02:45; Stop 04/11/16 at 02:44; Status DC Albuterol/ Ipratropium (Duoneb) 3 ml RTQID NEB Last administered on 04/10/16 20 :01; Start 04/10/16 at 08:00; Stop 04/11/16 at 07:59; Status DC Acetaminophen (Tylenol) 650 mg PRN Q6HRS PRN PO PAIN; Start 04/10/16 at 12:00 Alprazolam (Xanax) 0.25 mg PRN BID PRN PO ANXIETY; Start 04/10/16 at 12:00 Aspirin (Ecotrin) 81 mg DAILY PO Last administered on 04/11/16 08:17; Start 04/10/16 at 12:15 Divalproex Sodium (Depakote) 250 mg PRN DAILY PRN PO ANXIETY / AGITATION; Start 04/10/16 at 12:00 Donepezil HCl (Aricept) 10 mg HS PO Last administered on 04/10/16 21:13; Start 04/10/16 at 21:00 Fluticasone Propionate (Flonase) 1 spray BID NS Last administered on 04/11/16 08:18; Start 04/10/16 at 12:30 Glimepiride (Amaryl) 2 mg BIDAC PO Last administered on 04/11/16 08:17; Start 04/10/16 at 16:30 Hydrocortisone (Proctosol-Hc) 1 willie PRN TID PRN RC RECTAL PAIN; Start 04/10/16 at 12:00 Albuterol Sulfate (Ventolin Neb Soln) 2.5 mg PRN QID PRN NEB SHORTNESS OF BREATH; Start 04/10/16 at 12:00 Losartan Potassium (Cozaar) 50 mg DAILY PO Last administered on 04/11/16 08:17 ; Start 04/10/16 at 12:30 Magnesium Hydroxide (Milk Of Magnesia) 400 mg BIDAC PO Last administered on 04/10 16:51; Start 04/10/16 at 16:30 Trazodone HCl (Desyrel) 25 mg PRN QHS PRN PO INSOMNIA; Start 04/10/16 at 12:00 Buspirone HCl (Buspar) 15 mg PRN BID PRN PO ANXIETY; Start 04/10/16 at 12:00 Citalopram Hydrobromide (Celexa) 40 mg DAILY PO Last administered on 04/11/16 08:24; Start 04/11/16 at 09:00 Zolpidem Tartrate (Ambien) 5 mg PRN QHS PRN PO INSOMNIA; Start 04/10/16 at 12:00 Non-Formulary Medication 5 mg HS PRN PO INSOMNIA; Start 04/10/16 at 12:00; Stop 04/10/16 at 12:00; Status DC Ondansetron HCl 4 mg 4 mg PRN Q6HRS PRN IV NAUSEA/VOMITING; Start 04/10/16 at 12 :00 Sodium Chloride (Iv Sodium Chloride 0.45%) 1,000 ml @ 75 mls/hr 1X ONCE IV Last administered on 04/10/16 16:53; Start 04/10/16 at 12:00; Stop 04/11/16 at 01: 19; Status DC Oseltamivir Phosphate (Tamiflu) 30 mg BID PO Last administered on 04/11/16 08: 17; Start 04/10/16 at 21:00; Stop 04/15/16 at 20:59 Insulin Aspart (Novolog) 0-9 UNITS QIDACHS SQ ; Start 04/10/16 at 12:30 Dextrose 12.5 gm PRN Q15MIN PRN IV SEE COMMENTS; Start 04/10/16 at 12:00 Heparin Sodium (Porcine) 5,000 unit Q8HRS SQ Last administered on 04/11/16 05: 59; Start 04/10/16 at 15:00 Pantoprazole Sodium (Protonix) 40 mg DAILYAC PO Last administered on 04/11/16 08:17; Start 04/10/16 at 20:00 Active Scripts Active Reported Milk Of Magnesia (Magnesium Hydroxide) 400 Mg/5 Ml Oral.susp 500 Mg PO BIDAC Metformin Hcl 500 Mg Tablet 1 Tab PO BID Melatonin 5 Mg Capsule 5 Mg PO HS PRN Lunesta (Eszopiclone) 2 Mg Tablet 2 Mg PO HS PRN Lunesta (Eszopiclone) 2 Mg Tablet 2 Mg PO HS PRN Duoneb 0.5-3(2.5) Mg/3 Ml (Albuterol/Ipratropium) 3 Ml Ampul.neb 3 Ml NEB QID PRN Aspir 81 (Aspirin) 81 Mg Tablet.dr 1 Tab PO DAILY Tylenol (Acetaminophen) 325 Mg Tablet 1-2 Tab PO Q4HRS PRN Buspirone Hcl 15 Mg Tablet 15-30 Mg PO BID PRN Citalopram Hbr (Citalopram Hydrobromide) 40 Mg Tablet 40 Mg PO DAILY Glimepiride 2 Mg Tablet 2 Mg PO BIDAC Losartan Potassium 50 Mg Tablet 50 Mg PO DAILY Trazodone Hcl 50 Mg Tablet 25 Mg PO HS PRN Donepezil Hcl 10 Mg Tablet 10 Mg PO HS Divalproex Sodium 250 Mg Tablet.dr 250 Mg PO DAILY PRN Proctocream-Hc (Hydrocortisone) 30 Gm Cream..g. 1 Willie RC TID PRN for hemorroids Fluticasone Propionate Nasal [place] (Fluticasone Propionate) 16 Gm [place].susp 50 Mcg ROXY BID 2 sprays each nostril Alprazolam 0.25 Mg Tablet 0.25 Mg PO BID PRN Vitals/I & O Vital Sign - Last 24 Hours 04/10/16 04/10/16 04/10/16 04/10/16 13:46 15:21 15:21 19:00 Temp 99.5 100.2 99.5 100.2 Pulse 65 66 72 Resp 20 20 B/P 111/57 108/65 113/66 Pulse Ox 96 96 95 O2 Delivery Nasal Cannula Nasal Cannula Nasal Cannula O2 Flow Rate 3.0 3.0 2.0 04/10/16 04/10/16 04/10/16 04/11/16 19:15 20:02 23:00 03:00 Temp 98.1 98.1 98.1 98.1 Pulse 66 71 Resp 18 18 B/P 133/67 127/69 Pulse Ox 95 96 95 O2 Delivery Nasal Cannula Nasal Cannula Nasal Cannula Nasal Cannula O2 Flow Rate 3.0 2.0 2.0 2.0 04/11/16 04/11/16 04/11/16 04/11/16 07:02 08:00 08:17 10:41 Temp 98.4 99.9 98.4 99.9 Pulse 69 69 73 Resp 20 16 B/P 130/71 130/71 135/72 Pulse Ox 96 96 O2 Delivery Nasal Cannula Nasal Cannula Nasal Cannula O2 Flow Rate 2.0 3.0 2.0 04/11/16 11:00 Temp 99.9 99.9 Pulse 73 Resp 16 B/P 135/72 O2 Delivery Nasal Cannula O2 Flow Rate 2.0 Intake and Output 04/10/16 04/10/16 04/11/16 15:00 23:00 07:00 Intake Total 1450 ml Output Total 100 ml 400 ml Balance -100 ml -400 ml 1450 ml PAMELA HADDAD MD Apr 11, 2016 12:52
[2016-04-11] MEDS: ZOLPIDEM 5 MG TABLET. PO PRN (21:04)
[2016-04-11] MEDS: DONEPEZIL HCL 10 MG TABLET. PO SCH (21:04)
[2016-04-11] MEDS: ACETAMINOPHEN 325 MG TABLET. PO PRN (22:21)
[2016-04-12 02:47] VITALS: BP 157/86
[2016-04-12 04:22] LABS: BASO % 1 % (0-3); EOS % 1 % (0-3); HEMATOCRIT 41.3 % (39.0-53.0); HEMOGLOBIN 13.8 g/dL (13.0-17.5); LYMPH # 1.2 x10^3/uL (1.0-4.8); LYMPH % 31 % (24-48); MEAN CORPUSCULAR HEMOGLOBIN 31 pg (25-35); MEAN CORPUSCULAR HGB CONC 33 g/dL (31-37); MEAN CORPUSCULAR VOLUME 91 fL (79-100); MONO % 11 % (0-9); NEUT % 57 % (31-73); PLATELET COUNT 115 x10^3/uL (140-400); RED BLOOD COUNT 4.51 x10^6/uL (4.30-5.70); RED CELL DISTRIBUTION WIDTH 15.3 % (11.5-14.5)
[2016-04-12 04:41] LABS: CALCIUM 8.4 mg/dL (8.5-10.1); CREATININE 0.9 mg/dL (0.7-1.3); GFR 81.6; POTASSIUM 4.1 mmol/L (3.5-5.1)
[2016-04-12] MEDS: HEPARIN PF for SUB-Q USE 5,000 UNIT/0.5 ML VIAL. SQ SCH ×3 (05:35→23:08)
[2016-04-12 07:00] VITALS: BP 144/98
[2016-04-12] MEDS: PANTOPRAZOLE 40 MG TABLET. PO SCH (08:09)
[2016-04-12] MEDS: LOSARTAN POTASSIUM 50 MG TABLET. PO SCH (08:09)
[2016-04-12] MEDS: MAGNESIUM HYDROXIDE 2,400 MG/30 ML ORAL.SUSP. PO SCH ×2 (08:09→18:09)
[2016-04-12] MEDS: OSELTAMIVIR 30 MG CAPSULE PO SCH ×2 (08:09→23:01)
[2016-04-12] MEDS: CITALOPRAM 20 MG TABLET. PO SCH (08:09)
[2016-04-12] MEDS: FLUTICASONE 50MCG/NASAL SPRAY 16GM BOTTLE. NS SCH ×2 (08:10→23:00)
[2016-04-12] MEDS: ASPIRIN ENTERIC COATED 81 MG TABLET.DR. PO SCH (08:10)
[2016-04-12 11:00] VITALS: BP 121/69
--- NOTE | 2016-04-12 11:54 | PDOC ---
PULMONARY PROGRESS NOTES Subjective much better Vitals Vital Signs Date Time Temp Pulse Resp B/P Pulse Ox O2 Delivery O2 Flow Rate FiO2 04/12/16 11:00 99.7 65 20 121/69 93 Room Air 99.7 04/11/16 20:29 2.0 General: Alert, No acute distress Lungs: Other (bl coarse bs) Cardiovascular: S1 Abdomen: Soft Neuro Exam: Alert Extremities: No Edema Skin: Warm Labs Laboratory Tests Test 04/10/16 16:07 04/10/16 21:16 04/11/16 06:20 04/11/16 06:54 Glucose (Fingerstick) 148mg/dL (70-99) 129mg/dL (70-99) 80mg/dL (70-99) White Blood Count 4.0x10^3/uL (4.0-11.0) Red Blood Count 4.22x10^6/uL (4.30-5.70) Hemoglobin 12.9g/dL (13.0-17.5) Hematocrit 39.7% (39.0-53.0) Mean Corpuscular Volume 94fL (79-100) Mean Corpuscular Hemoglobin 31pg (25-35) Mean Corpuscular Hemoglobin Concent 33g/dL (31-37) Red Cell Distribution Width 14.7% (11.5-14.5) Platelet Count 116x10^3/uL (140-400) Neutrophils (%) (Auto) 62% (31-73) Lymphocytes (%) (Auto) 25% (24-48) Monocytes (%) (Auto) 12% (0-9) Eosinophils (%) (Auto) 1% (0-3) Basophils (%) (Auto) 0% (0-3) Neutrophils # (Auto) 2.5x10^3uL (1.8-7.7) Lymphocytes # (Auto) 1.0x10^3/uL (1.0-4.8) Monocytes # (Auto) 0.5x10^3/uL (0.0-1.1) Eosinophils # (Auto) 0.0x10^3/uL (0.0-0.7) Basophils # (Auto) 0.0x10^3/uL (0.0-0.2) Sodium Level 142mmol/L (136-145) Potassium Level 4.3mmol/L (3.5-5.1) Chloride Level 106mmol/L (98-107) Carbon Dioxide Level 30mmol/L (21-32) Anion Gap 6 (6-14) Blood Urea Nitrogen 13mg/dL (8-26) Creatinine 1.1mg/dL (0.7-1.3) Estimated GFR (Cockcroft-Gault) 64.7 Glucose Level 73mg/dL (70-99) Calcium Level 8.1mg/dL (8.5-10.1) Test 04/11/16 12:20 04/11/16 13:29 04/11/16 16:42 04/11/16 16:58 Glucose (Fingerstick) 53mg/dL (70-99) 95mg/dL (70-99) 52mg/dL (70-99) 131mg/dL (70-99) Test 04/11/16 20:17 04/12/16 04:08 Glucose (Fingerstick) 67mg/dL (70-99) White Blood Count 4.0x10^3/uL (4.0-11.0) Red Blood Count 4.51x10^6/uL (4.30-5.70) Hemoglobin 13.8g/dL (13.0-17.5) Hematocrit 41.3% (39.0-53.0) Mean Corpuscular Volume 91fL (79-100) Mean Corpuscular Hemoglobin 31pg (25-35) Mean Corpuscular Hemoglobin Concent 33g/dL (31-37) Red Cell Distribution Width 15.3% (11.5-14.5) Platelet Count 115x10^3/uL (140-400) Neutrophils (%) (Auto) 57% (31-73) Lymphocytes (%) (Auto) 31% (24-48) Monocytes (%) (Auto) 11% (0-9) Eosinophils (%) (Auto) 1% (0-3) Basophils (%) (Auto) 1% (0-3) Neutrophils # (Auto) 2.3x10^3uL (1.8-7.7) Lymphocytes # (Auto) 1.2x10^3/uL (1.0-4.8) Monocytes # (Auto) 0.4x10^3/uL (0.0-1.1) Eosinophils # (Auto) 0.0x10^3/uL (0.0-0.7) Basophils # (Auto) 0.0x10^3/uL (0.0-0.2) Sodium Level 138mmol/L (136-145) Potassium Level 4.1mmol/L (3.5-5.1) Chloride Level 102mmol/L (98-107) Carbon Dioxide Level 30mmol/L (21-32) Anion Gap 6 (6-14) Blood Urea Nitrogen 11mg/dL (8-26) Creatinine 0.9mg/dL (0.7-1.3) Estimated GFR (Cockcroft-Gault) 81.6 Glucose Level 90mg/dL (70-99) Calcium Level 8.4mg/dL (8.5-10.1) Laboratory Tests Test 04/11/16 12:20 04/11/16 13:29 04/11/16 16:42 04/11/16 16:58 Glucose (Fingerstick) 53mg/dL (70-99) 95mg/dL (70-99) 52mg/dL (70-99) 131mg/dL (70-99) Test 04/11/16 20:17 04/12/16 04:08 Glucose (Fingerstick) 67mg/dL (70-99) White Blood Count 4.0x10^3/uL (4.0-11.0) Red Blood Count 4.51x10^6/uL (4.30-5.70) Hemoglobin 13.8g/dL (13.0-17.5) Hematocrit 41.3% (39.0-53.0) Mean Corpuscular Volume 91fL (79-100) Mean Corpuscular Hemoglobin 31pg (25-35) Mean Corpuscular Hemoglobin Concent 33g/dL (31-37) Red Cell Distribution Width 15.3% (11.5-14.5) Platelet Count 115x10^3/uL (140-400) Neutrophils (%) (Auto) 57% (31-73) Lymphocytes (%) (Auto) 31% (24-48) Monocytes (%) (Auto) 11% (0-9) Eosinophils (%) (Auto) 1% (0-3) Basophils (%) (Auto) 1% (0-3) Neutrophils # (Auto) 2.3x10^3uL (1.8-7.7) Lymphocytes # (Auto) 1.2x10^3/uL (1.0-4.8) Monocytes # (Auto) 0.4x10^3/uL (0.0-1.1) Eosinophils # (Auto) 0.0x10^3/uL (0.0-0.7) Basophils # (Auto) 0.0x10^3/uL (0.0-0.2) Sodium Level 138mmol/L (136-145) Potassium Level 4.1mmol/L (3.5-5.1) Chloride Level 102mmol/L (98-107) Carbon Dioxide Level 30mmol/L (21-32) Anion Gap 6 (6-14) Blood Urea Nitrogen 11mg/dL (8-26) Creatinine 0.9mg/dL (0.7-1.3) Estimated GFR (Cockcroft-Gault) 81.6 Glucose Level 90mg/dL (70-99) Calcium Level 8.4mg/dL (8.5-10.1) Medications Active Scripts Medications Dose Route/Sig Days Date Category Dose Instructions Milk Of Magnesia (Magnesium Hydroxide) 400 Mg/5 Ml Oral.susp 500 Mg PO BIDAC 04/10/16 Reported Metformin Hcl 500 Mg Tablet 1 Tab PO BID 04/10/16 Reported Melatonin 5 Mg Capsule 5 Mg PO HS PRN 04/10/16 Reported Lunesta (Eszopiclone) 2 Mg Tablet 2 Mg PO HS PRN 04/10/16 Reported Lunesta (Eszopiclone) 2 Mg Tablet 2 Mg PO HS PRN 04/10/16 Reported Duoneb 0.5-3(2.5) Mg/3 Ml (Albuterol/Ipratropium) 3 Ml Ampul.neb 3 Ml NEB QID PRN 04/10/16 Reported Aspir 81 (Aspirin) 81 Mg Tablet.dr 1 Tab PO DAILY 04/10/16 Reported Tylenol (Acetaminophen) 325 Mg Tablet 1-2 Tab PO Q4HRS PRN 04/10/16 Reported Buspirone Hcl 15 Mg Tablet 15-30 Mg PO BID PRN 04/10/16 Reported Citalopram Hbr (Citalopram Hydrobromide) 40 Mg Tablet 40 Mg PO DAILY 04/10/16 Reported Glimepiride 2 Mg Tablet 2 Mg PO BIDAC 04/10/16 Reported Losartan Potassium 50 Mg Tablet 50 Mg PO DAILY 04/10/16 Reported Trazodone Hcl 50 Mg Tablet 25 Mg PO HS PRN 04/10/16 Reported Donepezil Hcl 10 Mg Tablet 10 Mg PO HS 04/10/16 Reported Divalproex Sodium 250 Mg Tablet.dr 250 Mg PO DAILY PRN 04/10/16 Reported Proctocream-Hc (Hydrocortisone) 30 Gm Cream..g. 1 Willie RC TID PRN 04/10/16 Reported for hemorroids Fluticasone Propionate Nasal [place] (Fluticasone Propionate) 16 Gm [place].susp 50 Mcg ROXY BID 04/10/16 Reported 2 sprays each nostril Alprazolam 0.25 Mg Tablet 0.25 Mg PO BID PRN 04/10/16 Reported Impression . 1. Febrile illness secondary to influenza B. 2. Previous abnormal CT chest in 06/2015. followup CT chest with unchanged nodular scar ODALYS 3. Encephalopathy secondary to febrile illness, clinically improving. 4. Renal insufficiency. Plan . 1. Continue with Tamiflu. 2. Influenza isolation. 3. Continue with oxygen and slowly wean to keep saturation 92 and above. 4. f/u CT chest in 8 months 5. monitor renal function. much improved 6. Discussed with PCP/ possible d/c in 24 hrs CHARISSA MCDONNELL MD Apr 12, 2016 11:54
[2016-04-12 15:01] VITALS: BP 127/72
--- NOTE | 2016-04-12 15:12 | PDOC ---
PROGRESS NOTES Chief Complaint Chief Complaint 1. acute resp failure with hypoxia 2 flu b 3. severe dementia 4. dm2 5. htn 6. insomnia 7. anxiety, depression 8. ckd3 9. SIRS with flu plan: 1. fu with pulm 2. adjusted dose of tamiflu, 5ds 3. cont home meds ssi change to middle dose labs tmr dvt ppx PTOT History of Present Illness History of Present Illness very confused, mild cough on nc 2L still fever daily hypoglycemia, DM meds dced Vitals Vitals Vital Signs Date Time Temp Pulse Resp B/P Pulse Ox O2 Delivery O2 Flow Rate FiO2 04/12/16 15:01 98.9 64 20 127/72 92 Room Air 98.9 04/11/16 20:29 2.0 Physical Exam General: Alert, Oriented X3, Cooperative Heart: Regular rate, Normal S1 Lungs: Other (bl coarse bs) Abdomen: Normal bowel sounds, Soft Extremities: No clubbing Labs LABS Laboratory Tests Test 04/11/16 16:42 04/11/16 16:58 04/11/16 20:17 04/12/16 04:08 Glucose (Fingerstick) 52mg/dL (70-99) 131mg/dL (70-99) 67mg/dL (70-99) White Blood Count 4.0x10^3/uL (4.0-11.0) Red Blood Count 4.51x10^6/uL (4.30-5.70) Hemoglobin 13.8g/dL (13.0-17.5) Hematocrit 41.3% (39.0-53.0) Mean Corpuscular Volume 91fL (79-100) Mean Corpuscular Hemoglobin 31pg (25-35) Mean Corpuscular Hemoglobin Concent 33g/dL (31-37) Red Cell Distribution Width 15.3% (11.5-14.5) Platelet Count 115x10^3/uL (140-400) Neutrophils (%) (Auto) 57% (31-73) Lymphocytes (%) (Auto) 31% (24-48) Monocytes (%) (Auto) 11% (0-9) Eosinophils (%) (Auto) 1% (0-3) Basophils (%) (Auto) 1% (0-3) Neutrophils # (Auto) 2.3x10^3uL (1.8-7.7) Lymphocytes # (Auto) 1.2x10^3/uL (1.0-4.8) Monocytes # (Auto) 0.4x10^3/uL (0.0-1.1) Eosinophils # (Auto) 0.0x10^3/uL (0.0-0.7) Basophils # (Auto) 0.0x10^3/uL (0.0-0.2) Sodium Level 138mmol/L (136-145) Potassium Level 4.1mmol/L (3.5-5.1) Chloride Level 102mmol/L (98-107) Carbon Dioxide Level 30mmol/L (21-32) Anion Gap 6 (6-14) Blood Urea Nitrogen 11mg/dL (8-26) Creatinine 0.9mg/dL (0.7-1.3) Estimated GFR (Cockcroft-Gault) 81.6 Glucose Level 90mg/dL (70-99) Calcium Level 8.4mg/dL (8.5-10.1) Review of Systems Review of Systems no chills, sob or chest pain Assessment and Plan Assessmemt and Plan Problems Medical Problems: (1) Altered mental status Status: Acute (2) Febrile illness Status: Acute (3) Hypoxia Status: Acute (4) Influenza Status: Acute Problems: Comment Review of Relevant I have reviewed the following items zoraida (where applicable) has been applied. Labs Laboratory Tests Test 04/10/16 16:07 04/10/16 21:16 04/11/16 06:20 04/11/16 06:54 Glucose (Fingerstick) 148mg/dL (70-99) 129mg/dL (70-99) 80mg/dL (70-99) White Blood Count 4.0x10^3/uL (4.0-11.0) Red Blood Count 4.22x10^6/uL (4.30-5.70) Hemoglobin 12.9g/dL (13.0-17.5) Hematocrit 39.7% (39.0-53.0) Mean Corpuscular Volume 94fL (79-100) Mean Corpuscular Hemoglobin 31pg (25-35) Mean Corpuscular Hemoglobin Concent 33g/dL (31-37) Red Cell Distribution Width 14.7% (11.5-14.5) Platelet Count 116x10^3/uL (140-400) Neutrophils (%) (Auto) 62% (31-73) Lymphocytes (%) (Auto) 25% (24-48) Monocytes (%) (Auto) 12% (0-9) Eosinophils (%) (Auto) 1% (0-3) Basophils (%) (Auto) 0% (0-3) Neutrophils # (Auto) 2.5x10^3uL (1.8-7.7) Lymphocytes # (Auto) 1.0x10^3/uL (1.0-4.8) Monocytes # (Auto) 0.5x10^3/uL (0.0-1.1) Eosinophils # (Auto) 0.0x10^3/uL (0.0-0.7) Basophils # (Auto) 0.0x10^3/uL (0.0-0.2) Sodium Level 142mmol/L (136-145) Potassium Level 4.3mmol/L (3.5-5.1) Chloride Level 106mmol/L (98-107) Carbon Dioxide Level 30mmol/L (21-32) Anion Gap 6 (6-14) Blood Urea Nitrogen 13mg/dL (8-26) Creatinine 1.1mg/dL (0.7-1.3) Estimated GFR (Cockcroft-Gault) 64.7 Glucose Level 73mg/dL (70-99) Calcium Level 8.1mg/dL (8.5-10.1) Test 04/11/16 12:20 04/11/16 13:29 04/11/16 16:42 04/11/16 16:58 Glucose (Fingerstick) 53mg/dL (70-99) 95mg/dL (70-99) 52mg/dL (70-99) 131mg/dL (70-99) Test 04/11/16 20:17 04/12/16 04:08 Glucose (Fingerstick) 67mg/dL (70-99) White Blood Count 4.0x10^3/uL (4.0-11.0) Red Blood Count 4.51x10^6/uL (4.30-5.70) Hemoglobin 13.8g/dL (13.0-17.5) Hematocrit 41.3% (39.0-53.0) Mean Corpuscular Volume 91fL (79-100) Mean Corpuscular Hemoglobin 31pg (25-35) Mean Corpuscular Hemoglobin Concent 33g/dL (31-37) Red Cell Distribution Width 15.3% (11.5-14.5) Platelet Count 115x10^3/uL (140-400) Neutrophils (%) (Auto) 57% (31-73) Lymphocytes (%) (Auto) 31% (24-48) Monocytes (%) (Auto) 11% (0-9) Eosinophils (%) (Auto) 1% (0-3) Basophils (%) (Auto) 1% (0-3) Neutrophils # (Auto) 2.3x10^3uL (1.8-7.7) Lymphocytes # (Auto) 1.2x10^3/uL (1.0-4.8) Monocytes # (Auto) 0.4x10^3/uL (0.0-1.1) Eosinophils # (Auto) 0.0x10^3/uL (0.0-0.7) Basophils # (Auto) 0.0x10^3/uL (0.0-0.2) Sodium Level 138mmol/L (136-145) Potassium Level 4.1mmol/L (3.5-5.1) Chloride Level 102mmol/L (98-107) Carbon Dioxide Level 30mmol/L (21-32) Anion Gap 6 (6-14) Blood Urea Nitrogen 11mg/dL (8-26) Creatinine 0.9mg/dL (0.7-1.3) Estimated GFR (Cockcroft-Gault) 81.6 Glucose Level 90mg/dL (70-99) Calcium Level 8.4mg/dL (8.5-10.1) Laboratory Tests Test 04/11/16 16:42 04/11/16 16:58 04/11/16 20:17 04/12/16 04:08 Glucose (Fingerstick) 52mg/dL (70-99) 131mg/dL (70-99) 67mg/dL (70-99) White Blood Count 4.0x10^3/uL (4.0-11.0) Red Blood Count 4.51x10^6/uL (4.30-5.70) Hemoglobin 13.8g/dL (13.0-17.5) Hematocrit 41.3% (39.0-53.0) Mean Corpuscular Volume 91fL (79-100) Mean Corpuscular Hemoglobin 31pg (25-35) Mean Corpuscular Hemoglobin Concent 33g/dL (31-37) Red Cell Distribution Width 15.3% (11.5-14.5) Platelet Count 115x10^3/uL (140-400) Neutrophils (%) (Auto) 57% (31-73) Lymphocytes (%) (Auto) 31% (24-48) Monocytes (%) (Auto) 11% (0-9) Eosinophils (%) (Auto) 1% (0-3) Basophils (%) (Auto) 1% (0-3) Neutrophils # (Auto) 2.3x10^3uL (1.8-7.7) Lymphocytes # (Auto) 1.2x10^3/uL (1.0-4.8) Monocytes # (Auto) 0.4x10^3/uL (0.0-1.1) Eosinophils # (Auto) 0.0x10^3/uL (0.0-0.7) Basophils # (Auto) 0.0x10^3/uL (0.0-0.2) Sodium Level 138mmol/L (136-145) Potassium Level 4.1mmol/L (3.5-5.1) Chloride Level 102mmol/L (98-107) Carbon Dioxide Level 30mmol/L (21-32) Anion Gap 6 (6-14) Blood Urea Nitrogen 11mg/dL (8-26) Creatinine 0.9mg/dL (0.7-1.3) Estimated GFR (Cockcroft-Gault) 81.6 Glucose Level 90mg/dL (70-99) Calcium Level 8.4mg/dL (8.5-10.1) Medications Current Medications Acetaminophen 1000 mg 1,000 mg 1X ONCE PO Last administered on 04/10/16t 01:15 ; Start 04/10/16 at 01:30; Stop 04/10/16 at 01:31; Status DC Sodium Chloride (Iv Sodium Chloride 0.9% 1000ml Bag) 1,000 ml @ 750 mls/hr Q1H20M IV Last administered on 04/10/16 01:15; Start 04/10/16 at 01:00; Stop 04/10/16 at 04:59; Status DC Oseltamivir Phosphate (Tamiflu) 75 mg 1X ONCE PO Last administered on 01:49; Start 04/10/16 at 01:45; Stop 04/10/16 at 01:46; Status DC Ondansetron HCl 4 mg 4 mg PRN Q8HRS PRN IV NAUSEA/VOMITING; Start 04/10/16 at 02 :45; Stop 04/11/16 at 02:44; Status DC Sodium Chloride (Iv Sodium Chloride 0.9% 1000ml Bag) 1,000 ml @ 125 mls/hr Q8H IV Last administered on 04/10/16 05:27; Start 04/10/16 at 03:00; Stop 04/11/16 at 02:59; Status DC Acetaminophen (Tylenol) 650 mg PRN Q4HRS PRN PO FEVER Last administered on 21:13; Start 04/10/16 at 02:45; Stop 04/11/16 at 02:44; Status DC Albuterol/ Ipratropium (Duoneb) 3 ml RTQID NEB Last administered on 04/10/16 20 :01; Start 04/10/16 at 08:00; Stop 04/11/16 at 07:59; Status DC Acetaminophen (Tylenol) 650 mg PRN Q6HRS PRN PO PAIN Last administered on 22:21; Start 04/10/16 at 12:00 Alprazolam (Xanax) 0.25 mg PRN BID PRN PO ANXIETY; Start 04/10/16 at 12:00 Aspirin (Ecotrin) 81 mg DAILY PO Last administered on 04/12/16 08:10; Start 04/10/16 at 12:15 Divalproex Sodium (Depakote) 250 mg PRN DAILY PRN PO ANXIETY / AGITATION; Start 04/10/16 at 12:00 Donepezil HCl (Aricept) 10 mg HS PO Last administered on 04/11/16 21:04; Start 04/10/16 at 21:00 Fluticasone Propionate (Flonase) 1 spray BID NS Last administered on 04/11/16 21:04; Start 04/10/16 at 12:30 Glimepiride (Amaryl) 2 mg BIDAC PO Last administered on 04/11/16 08:17; Start 04/10/16 at 16:30; Stop 04/11/16 at 17:08; Status DC Hydrocortisone (Proctosol-Hc) 1 willie PRN TID PRN RC RECTAL PAIN; Start 04/10/16 at 12:00 Albuterol Sulfate (Ventolin Neb Soln) 2.5 mg PRN QID PRN NEB SHORTNESS OF BREATH; Start 04/10/16 at 12:00 Losartan Potassium (Cozaar) 50 mg DAILY PO Last administered on 04/12/16 08:09 ; Start 04/10/16 at 12:30 Magnesium Hydroxide (Milk Of Magnesia) 400 mg BIDAC PO Last administered on 04/12 08:09; Start 04/10/16 at 16:30 Trazodone HCl (Desyrel) 25 mg PRN QHS PRN PO INSOMNIA; Start 04/10/16 at 12:00 Buspirone HCl (Buspar) 15 mg PRN BID PRN PO ANXIETY Last administered on 21:04; Start 04/10/16 at 12:00 Citalopram Hydrobromide (Celexa) 40 mg DAILY PO Last administered on 04/12/16 08:09; Start 04/11/16 at 09:00 Zolpidem Tartrate (Ambien) 5 mg PRN QHS PRN PO INSOMNIA Last administered on 21:04; Start 04/10/16 at 12:00 Non-Formulary Medication 5 mg HS PRN PO INSOMNIA; Start 04/10/16 at 12:00; Stop 04/10/16 at 12:00; Status DC Ondansetron HCl 4 mg 4 mg PRN Q6HRS PRN IV NAUSEA/VOMITING; Start 04/10/16 at 12 :00 Sodium Chloride (Iv Sodium Chloride 0.45%) 1,000 ml @ 75 mls/hr 1X ONCE IV Last administered on 04/10/16 16:53; Start 04/10/16 at 12:00; Stop 04/11/16 at 01: 19; Status DC Oseltamivir Phosphate (Tamiflu) 30 mg BID PO Last administered on 04/12/16 08: 09; Start 04/10/16 at 21:00; Stop 04/15/16 at 20:59 Insulin Aspart (Novolog) 0-9 UNITS QIDACHS SQ ; Start 04/10/16 at 12:30; Stop 04/11/16 at 17:08; Status DC Dextrose 12.5 gm PRN Q15MIN PRN IV SEE COMMENTS Last administered on 04/11/16 16:50; Start 04/10/16 at 12:00 Heparin Sodium (Porcine) 5,000 unit Q8HRS SQ Last administered on 04/12/16 14: 39; Start 04/10/16 at 15:00 Pantoprazole Sodium (Protonix) 40 mg DAILYAC PO Last administered on 04/12/16 08:09; Start 04/10/16 at 20:00 Active Scripts Active Reported Milk Of Magnesia (Magnesium Hydroxide) 400 Mg/5 Ml Oral.susp 500 Mg PO BIDAC Metformin Hcl 500 Mg Tablet 1 Tab PO BID Melatonin 5 Mg Capsule 5 Mg PO HS PRN Lunesta (Eszopiclone) 2 Mg Tablet 2 Mg PO HS PRN Lunesta (Eszopiclone) 2 Mg Tablet 2 Mg PO HS PRN Duoneb 0.5-3(2.5) Mg/3 Ml (Albuterol/Ipratropium) 3 Ml Ampul.neb 3 Ml NEB QID PRN Aspir 81 (Aspirin) 81 Mg Tablet.dr 1 Tab PO DAILY Tylenol (Acetaminophen) 325 Mg Tablet 1-2 Tab PO Q4HRS PRN Buspirone Hcl 15 Mg Tablet 15-30 Mg PO BID PRN Citalopram Hbr (Citalopram Hydrobromide) 40 Mg Tablet 40 Mg PO DAILY Glimepiride 2 Mg Tablet 2 Mg PO BIDAC Losartan Potassium 50 Mg Tablet 50 Mg PO DAILY Trazodone Hcl 50 Mg Tablet 25 Mg PO HS PRN Donepezil Hcl 10 Mg Tablet 10 Mg PO HS Divalproex Sodium 250 Mg Tablet.dr 250 Mg PO DAILY PRN Proctocream-Hc (Hydrocortisone) 30 Gm Cream..g. 1 Willie RC TID PRN for hemorroids Fluticasone Propionate Nasal [place] (Fluticasone Propionate) 16 Gm [place].susp 50 Mcg ROXY BID 2 sprays each nostril Alprazolam 0.25 Mg Tablet 0.25 Mg PO BID PRN Vitals/I & O Vital Sign - Last 24 Hours 04/11/16 04/11/16 04/11/16 04/12/16 19:25 20:29 22:44 02:47 Temp 100.0 101.8 98.1 100.0 101.8 98.1 Pulse 74 87 75 Resp 18 18 18 B/P 137/68 156/85 157/86 Pulse Ox 96 96 96 O2 Delivery Nasal Cannula Nasal Cannula Room Air Room Air O2 Flow Rate 2.0 2.0 04/12/16 04/12/16 04/12/16 04/12/16 07:00 07:49 08:09 11:00 Temp 97.4 99.7 97.4 99.7 Pulse 76 76 65 Resp 22 20 B/P 144/98 144/98 121/69 Pulse Ox 91 93 O2 Delivery Room Air Room Air Room Air 04/12/16 15:01 Temp 98.9 98.9 Pulse 64 Resp 20 B/P 127/72 Pulse Ox 92 O2 Delivery Room Air Intake and Output 04/11/16 04/11/16 04/12/16 15:00 23:00 07:00 Intake Total 360 ml 640 ml Output Total 600 ml Balance 360 ml 40 ml PAMELA HADDAD MD Apr 12, 2016 15:12
[2016-04-12] MEDS ORDERED: DEXTROSE 50% 25 GM / 50ML DISP.SYRIN. IV PRN (15:15)
[2016-04-12] MEDS: INSULIN ASPART 300 UNITS/3 ML INSULN.PEN SQ SCH (17:00)
[2016-04-12 19:00] VITALS: BP 134/73
[2016-04-12 22:33] VITALS: BP 121/74
[2016-04-12] MEDS: ACETAMINOPHEN 325 MG TABLET. PO PRN (23:01)
[2016-04-12] MEDS: ZOLPIDEM 5 MG TABLET. PO PRN (23:01)
[2016-04-12] MEDS: DONEPEZIL HCL 10 MG TABLET. PO SCH (23:01)
[2016-04-13 03:00] VITALS: BP 127/72
[2016-04-13 03:05] VITALS: BP 121/74
[2016-04-13] MEDS: HEPARIN PF for SUB-Q USE 5,000 UNIT/0.5 ML VIAL. SQ SCH ×2 (05:34→14:00)
[2016-04-13 07:00] VITALS: BP 127/61
[2016-04-13] MEDS: PANTOPRAZOLE 40 MG TABLET. PO SCH (07:30)
[2016-04-13] MEDS: MAGNESIUM HYDROXIDE 2,400 MG/30 ML ORAL.SUSP. PO SCH (07:30)
[2016-04-13] MEDS: INSULIN ASPART 300 UNITS/3 ML INSULN.PEN SQ SCH ×2 (08:00→12:00)
[2016-04-13] MEDS: LOSARTAN POTASSIUM 50 MG TABLET. PO SCH (09:00)
[2016-04-13] MEDS: FLUTICASONE 50MCG/NASAL SPRAY 16GM BOTTLE. NS SCH (09:00)
[2016-04-13] MEDS: OSELTAMIVIR 30 MG CAPSULE PO SCH (09:00)
[2016-04-13] MEDS: CITALOPRAM 20 MG TABLET. PO SCH (09:00)
[2016-04-13] MEDS: ASPIRIN ENTERIC COATED 81 MG TABLET.DR. PO SCH (09:00)
--- NOTE | 2016-04-13 09:09 | PDOC ---
PULMONARY PROGRESS NOTES Subjective much better Vitals Vital Signs Date Time Temp Pulse Resp B/P Pulse Ox O2 Delivery O2 Flow Rate FiO2 04/13/16 03:05 99.5 62 121/74 94 Room Air 2.0 99.5 04/13/16 03:00 20 General: Alert, No acute distress Lungs: Other (bl coarse bs) Cardiovascular: S1 Abdomen: Soft Neuro Exam: Alert Extremities: No Edema Skin: Warm Labs Laboratory Tests Test 04/11/16 12:20 04/11/16 13:29 04/11/16 16:42 04/11/16 16:58 Glucose (Fingerstick) 53mg/dL (70-99) 95mg/dL (70-99) 52mg/dL (70-99) 131mg/dL (70-99) Test 04/11/16 20:17 04/12/16 04:08 04/12/16 07:02 04/12/16 11:33 Glucose (Fingerstick) 67mg/dL (70-99) 94mg/dL (70-99) 105mg/dL (70-99) White Blood Count 4.0x10^3/uL (4.0-11.0) Red Blood Count 4.51x10^6/uL (4.30-5.70) Hemoglobin 13.8g/dL (13.0-17.5) Hematocrit 41.3% (39.0-53.0) Mean Corpuscular Volume 91fL (79-100) Mean Corpuscular Hemoglobin 31pg (25-35) Mean Corpuscular Hemoglobin Concent 33g/dL (31-37) Red Cell Distribution Width 15.3% (11.5-14.5) Platelet Count 115x10^3/uL (140-400) Neutrophils (%) (Auto) 57% (31-73) Lymphocytes (%) (Auto) 31% (24-48) Monocytes (%) (Auto) 11% (0-9) Eosinophils (%) (Auto) 1% (0-3) Basophils (%) (Auto) 1% (0-3) Neutrophils # (Auto) 2.3x10^3uL (1.8-7.7) Lymphocytes # (Auto) 1.2x10^3/uL (1.0-4.8) Monocytes # (Auto) 0.4x10^3/uL (0.0-1.1) Eosinophils # (Auto) 0.0x10^3/uL (0.0-0.7) Basophils # (Auto) 0.0x10^3/uL (0.0-0.2) Sodium Level 138mmol/L (136-145) Potassium Level 4.1mmol/L (3.5-5.1) Chloride Level 102mmol/L (98-107) Carbon Dioxide Level 30mmol/L (21-32) Anion Gap 6 (6-14) Blood Urea Nitrogen 11mg/dL (8-26) Creatinine 0.9mg/dL (0.7-1.3) Estimated GFR (Cockcroft-Gault) 81.6 Glucose Level 90mg/dL (70-99) Calcium Level 8.4mg/dL (8.5-10.1) Test 04/12/16 16:26 04/12/16 20:43 04/13/16 08:17 Glucose (Fingerstick) 115mg/dL (70-99) 116mg/dL (70-99) 105mg/dL (70-99) Laboratory Tests Test 04/12/16 11:33 04/12/16 16:26 04/12/16 20:43 04/13/16 08:17 Glucose (Fingerstick) 105mg/dL (70-99) 115mg/dL (70-99) 116mg/dL (70-99) 105mg/dL (70-99) Medications Active Scripts Medications Dose Route/Sig Days Date Category Dose Instructions Milk Of Magnesia (Magnesium Hydroxide) 400 Mg/5 Ml Oral.susp 500 Mg PO BIDAC 04/10/16 Reported Metformin Hcl 500 Mg Tablet 1 Tab PO BID 04/10/16 Reported Melatonin 5 Mg Capsule 5 Mg PO HS PRN 04/10/16 Reported Lunesta (Eszopiclone) 2 Mg Tablet 2 Mg PO HS PRN 04/10/16 Reported Lunesta (Eszopiclone) 2 Mg Tablet 2 Mg PO HS PRN 04/10/16 Reported Duoneb 0.5-3(2.5) Mg/3 Ml (Albuterol/Ipratropium) 3 Ml Ampul.neb 3 Ml NEB QID PRN 04/10/16 Reported Aspir 81 (Aspirin) 81 Mg Tablet.dr 1 Tab PO DAILY 04/10/16 Reported Tylenol (Acetaminophen) 325 Mg Tablet 1-2 Tab PO Q4HRS PRN 04/10/16 Reported Buspirone Hcl 15 Mg Tablet 15-30 Mg PO BID PRN 04/10/16 Reported Citalopram Hbr (Citalopram Hydrobromide) 40 Mg Tablet 40 Mg PO DAILY 04/10/16 Reported Glimepiride 2 Mg Tablet 2 Mg PO BIDAC 04/10/16 Reported Losartan Potassium 50 Mg Tablet 50 Mg PO DAILY 04/10/16 Reported Trazodone Hcl 50 Mg Tablet 25 Mg PO HS PRN 04/10/16 Reported Donepezil Hcl 10 Mg Tablet 10 Mg PO HS 04/10/16 Reported Divalproex Sodium 250 Mg Tablet.dr 250 Mg PO DAILY PRN 04/10/16 Reported Proctocream-Hc (Hydrocortisone) 30 Gm Cream..g. 1 Willie RC TID PRN 04/10/16 Reported for hemorroids Fluticasone Propionate Nasal Calera (Fluticasone Propionate) 16 Gm Calera.susp 50 Mcg ROXY BID 04/10/16 Reported 2 sprays each nostril Alprazolam 0.25 Mg Tablet 0.25 Mg PO BID PRN 04/10/16 Reported Impression . 1. Febrile illness secondary to influenza B. resolved 2. Previous abnormal CT chest in 06/2015. followup CT chest with unchanged nodular scar ODALYS 3. Encephalopathy secondary to febrile illness, clinically improving. 4. Renal insufficiency. Plan . 1. Tamiflu for 5 days 2. Influenza isolation. 3. off oxygen 4. f/u CT chest in 8 months 5. monitor renal function. much improved 6. Discussed with PCP/ d/c today CHARISSA MCDONNELL MD Apr 13, 2016 09:09
[2016-04-13] MEDS ORDERED: INFLUENZA VAX SCREEN BY RX. MC PRN (10:00)
[2016-04-13] MEDS ORDERED: OSEL30CA PO (10:28)
[2016-04-13] MEDS ORDERED: FLU VACC QUAD 2016-17 (36MOS+)/PF 0.5 ML SYRINGE. VAX IM ONE (10:30)
[2016-04-13 11:00] VITALS: BP 120/70
[2016-04-13] MEDS ORDERED: IPRATRPIUM/ALBUTEROL 0.5/2.5MG 3 ML NEBU. NEB SCH (12:00)
--- NOTE | 2016-04-13 13:34 | PDOC3 ---
Discharge Summary [facility] Date of Admission: Apr 10, 2016 Discharge Date: Apr 13, 2016 Admitting Diagnosis 1. acute resp failure with hypoxia 2 flu b 3. severe dementia 4. dm2 5. htn 6. insomnia 7. anxiety, depression 8. ckd3 9. SIRS with flu Problems: Final Diagnosis Problems Medical Problems: (1) Altered mental status Status: Acute (2) Febrile illness Status: Acute (3) Hypoxia Status: Acute (4) Influenza Status: Acute CONSULTS pulm Brief Hospital Course 80 yo M , severe dementia, from SNF, for fever 103. Pt was found + flu, on tamiflu now. pt is very demented, only aaox1 to his name, answer questions tho, but only says "NO". he admited has some cough, denies sob. He was found desat in ER. + FLU B PT has no severe sbo, very demented. better today afebrile, sat good on RA dc back to SNF with another 3ds of tamiflu. dc time 35min General: Alert, Oriented X3, Cooperative Heart: Regular rate, Normal S1 Lungs: Other (bl coarse bs) Abdomen: Normal bowel sounds, Soft Extremities: No clubbing Problems: Disposition snf CONDITION AT DISCHARGE: Improved Diet regular Scheduled Aspirin (Aspir 81) 1 TAB PO DAILY (Reported) Citalopram Hydrobromide (Citalopram Hbr) 40 MG PO DAILY (Reported) Donepezil Hcl (Donepezil Hcl) 10 MG PO HS (Reported) Fluticasone Propionate (Fluticasone Propionate Nasal [place]) 50 MCG ROXY BID ( Reported) Losartan Potassium (Losartan Potassium) 50 MG PO DAILY (Reported) Magnesium Hydroxide (Milk Of Magnesia) 500 MG PO BIDAC (Reported) Metformin Hcl (Metformin Hcl) 1 TAB PO BID (Reported) Oseltamivir Phosphate (Tamiflu) 30 MG PO BID Scheduled PRN Acetaminophen (Tylenol) 1-2 TAB PO Q4HRS PRN PRN PAIN (Reported) Alprazolam (Alprazolam) 0.25 MG PO BID PRN PRN AD (Reported) Buspirone Hcl (Buspirone Hcl) 15-30 MG PO BID PRN PRN ANXIETY / AGITATION ( Reported) Divalproex Sodium (Divalproex Sodium) 250 MG PO DAILY PRN PRN ANXIETY / AGITATION (Reported) Eszopiclone (Lunesta) 2 MG PO HS PRN PRN INSOMNIA (Reported) Eszopiclone (Lunesta) 2 MG PO HS PRN PRN INSOMNIA (Reported) Hydrocortisone (Proctocream-Hc) 1 ASHTYN RC TID PRN PRN SEE COMMENTS (Reported) Ipratropium/Albuterol Sulfate (Duoneb 0.5-3(2.5) Mg/3 Ml) 3 ML NEB QID PRN PRN WHEEZING (Reported) Melatonin (Melatonin) 5 MG PO HS PRN PRN INSOMNIA (Reported) Trazodone Hcl (Trazodone Hcl) 25 MG PO HS PRN PRN INSOMNIA (Reported) Discontinued Medications Glimepiride (Glimepiride) 2 MG PO BIDAC (Reported) Follow Up pcp in 2 weeks PAMELA HADDAD MD Apr 13, 2016 13:34
[2016-04-13 14:33] VITALS: BP 133/65
== END 2016-04-13 15:01 | DRG 193 ==
LOC: ER 00:20 → 5 NORTH 01:12
PROVIDERS: ADMIT Internal Medicine; ATTEND Internal Medicine
DX: J10.1 Influenza due to other identified influenza virus with other respiratory manifestations (principal); J96.01 Acute respiratory failure with hypoxia; G93.40 Encephalopathy, unspecified; N17.9 Acute kidney failure, unspecified; R65.10 Systemic inflammatory response syndrome (SIRS) of non-infectious origin without acute organ dysfunction; E11.22 Type 2 diabetes mellitus with diabetic chronic kidney disease; E11.649 Type 2 diabetes mellitus with hypoglycemia without coma; F02.80 Dementia in other diseases classified elsewhere, unspecified severity, without behavioral disturbance, psychotic disturbance, mood disturbance, and anxiety; F32.9 Major depressive disorder, single episode, unspecified; N18.2 Chronic kidney disease, stage 2 (mild); F41.9 Anxiety disorder, unspecified; G30.9 Alzheimer's disease, unspecified; G47.00 Insomnia, unspecified; I12.9 Hypertensive chronic kidney disease with stage 1 through stage 4 chronic kidney disease, or unspecified chronic kidney disease; I25.10 Atherosclerotic heart disease of native coronary artery without angina pectoris; Z87.891 Personal history of nicotine dependence; Z90.49 Acquired absence of other specified parts of digestive tract; Z95.5 Presence of coronary angioplasty implant and graft; Z96.659 Presence of unspecified artificial knee joint
CPT/HCPCS: 36415; 71010; 71250; 80048; 80053; 82947; 85027; 87641; 87804; 94640; J1815; J7030; J7042; J7620; 99285-25

== ENCOUNTER 2017-02-08 23:09 | Emergency (ER) | payer BC ==
[2017-02-08 23:51] LABS: BILIRUBIN,URINE SMALL (NEG); CLARITY,URINE CLOUDY; COLOR,URINE YELLOW; GLUCOSE,URINE NEGATIVE (NEG); NITRITE,URINE NEGATIVE (NEG); PH,URINE 5.5; PROTEIN,URINE NEGATIVE (NEG-TRACE); UROBILINOGEN,URINE 0.2 mg/dL (0.2 mg/dL)
[2017-02-08 23:55] LABS: BACTERIA,URINE 0 /HPF (0-FEW); HYALINE CASTS, URINE FEW /HPF; RBC,URINE OCC /HPF (0-2); SQUAMOUS EPITHELIAL CELL,UR FEW /LPF
[2017-02-09 00:04] LABS: AGAP ISTAT 17 mmol/L (6-14); BUN ISTAT 24 mg/dL (8-26); CHLORIDE ISTAT 96 mmol/L (98-110); CREATININE ISTAT 1.2 mg/dL (0.5-1.4); GLUCOSE ISTAT 130 mg/dL (70-99); HEMATOCRIT ISTAT 40 % (37-52); HEMOGLOBIN ISTAT 13.6 g/dL (14-18); ION CA ISTAT 1.19 mmol/L (1.13-1.32); POTASSIUM ISTAT 3.7 mmol/L (3.5-5.0); SODIUM ISTAT 140 mmol/L (135-145); TOT CO2 ISTAT 32 mmol/L (23-32)
== END 2017-02-09 00:25 | disposition home or self-care (01) ==
LOC: ER 02-09 00:25
DX: F03.90 Unspecified dementia, unspecified severity, without behavioral disturbance, psychotic disturbance, mood disturbance, and anxiety (principal)
CPT/HCPCS: 80047; 81001; 93005; 99285-25